=== PATIENT | male | born 1950 | race Caucasian/White ===

== ENCOUNTER → 2017-12-01 12:58 | Outpatient (CLI) | payer MEDICARE, OTHER, SELFPAY ==
--- NOTE | 2017-12-01 | DI.US.S_ITS ---
PROCEDURE: US ABD AORTA ANEURYSM SCREEN INDICATIONS: SCREENING HYPERCALCIMIA HYPERPARATHYROIDISM TECHNIQUE: Real time scanning was performed of the aorta and iliac arteries, with image documentation. COMPARISON: None. FINDINGS: Aorta: Proximal aortic diameter measures 2.1 cm. Mid-aorta measures 1.8 cm. Distal aortic diameter is 1.4 cm. Iliac arteries: Right common iliac artery measures 0.9 cm. Left common iliac artery measures 1.0 cm. IMPRESSION: No abdominal aortic or proximal common iliac artery aneurysm. Dictated by: Jayden Win [facility] Interpreted: Brooke Matthews MD on 12/01/2017 at 14:24 Approved by: Brooke Matthews MD, PhD on 12/01/2017 at 14:37
--- NOTE | 2017-12-01 | DI.RAD.S_ITS ---
PROCEDURE: XR HIP W PEL IF DONE BILAT 2V INDICATIONS: SCREENING HYPERCALCIMIA HYPERPARATHYROIDISM TECHNIQUE: AP pelvis with lateral view(s) of the bilateral hip(s). COMPARISON: None. FINDINGS: Bones: No fractures or dislocations. Pelvic ring appears intact. No suspicious bony lesions. Mild to moderate bilateral hip joint osteoarthritis is seen with joint space narrowing and subchondral sclerosis. No evidence of avascular necrosis. Soft tissues: The visualized bowel gas pattern is normal. No suspicious soft tissue calcifications. IMPRESSION: No suspicious bony lesion is seen. Mild to moderate bilateral hip joint osteoarthritis. Dictated by: Armond Unger M.D. on 12/01/2017 at 15:44 Approved by: Armond Unger M.D. on 12/01/2017 at 15:45
== END ==
PROVIDERS: Family Provider Family Medicine; PCP Family Medicine; Visit Provider Family Medicine
DX: Z13.6 Encounter for screening for cardiovascular disorders (principal); M16.0 Bilateral primary osteoarthritis of hip; E83.52 Hypercalcemia; M25.551 Pain in right hip; M25.552 Pain in left hip
CPT/HCPCS: 73521; 76706; 77080

== ENCOUNTER → 2017-12-23 07:04 | Outpatient (CLI) | payer MEDICARE, OTHER, SELFPAY | PROVIDERS: PCP Family Medicine; Visit Provider Urology | DX: R97.20 Elevated prostate specific antigen [PSA] (principal) | CPT/HCPCS: 36415; 84153 ==

== ENCOUNTER 2018-05-26 06:17 | Day surgery (SDC) | payer MEDICARE, OTHER, SELFPAY ==
[2018-05-26 07:16] VITALS: BP 139/85; PULSE 84; RESP 16; TEMP 36.3; O2SAT 96; BMI 28.1
[2018-05-26] MEDS: fentaNYL 250 MCG/5 ML INJ IV (08:44)
[2018-05-26] MEDS: MIDAZOLAM 5 MG/5 ML VIAL IV (08:46)
[2018-05-26 08:58] VITALS: BP 138/101; PULSE 82; RESP 16; TEMP 36.3; O2SAT 94
--- NOTE | 2018-05-26 09:01 | PM.HP.1 ---
History of Present Illness Date Patient Seen: 05/26/18 Time Patient Seen: 09:01 Chief complaint: [id number] Narrative: Very pleasant 67-year-old gentleman here for screening colonoscopy. He reports his last colonoscopy was 5-6 years ago and he did have some small polyps at that time. Additionally he has a sister who had rectal cancer. He denies any new problems or symptoms related to the function of his GI tract. He reports he needs colonoscopy as part of his health maintenance program. Patient History Social History household members: spouse Family & Social History Social History: household members spouse Meds Home Medications Medication Instructions Recorded Confirmed Type multivitamin 1 tab PO DAILY 05/26/18 05/26/18 History omega 2-kik-bqd-fish oil [Fish Oil] 05/26/18 History Allergies Allergy/AdvReac Type Severity Reaction Status Date / Time No Known Drug Allergies Allergy Verified 05/26/18 07:36 Review of Systems Review of Systems All systems reviewed & are unremarkable except as noted in HPI and below Exam Vital Signs (past 8 hours): - 05/26/18 07:16 Temperature 97.3 F L Pulse Rate 84 Respiratory Rate 16 Blood Pressure 139/85 Pulse Oximetry 96 Oxygen Delivery Method Room Air Narrative Exam Narrative: Wonderful gentleman in no distress HEENT: Normocephalic and atraumatic, pupils equal round reactive to light accommodation with anicteric sclera Lungs: Clear bilaterally Heart: Regular rate and rhythm Abdomen: Soft, nontender, active bowel sounds Extremities: Warm well perfused Assessment & Plan Assessment & Plan narrative: One full 67-year-old gentleman with family history of colon cancer and personal history of colon polyps. We discussed risks and benefits of the procedure the patient expressed a desire to have the procedure.
[2018-05-26 09:03] VITALS: BP 123/86; PULSE 83; RESP 12; O2SAT 93
--- NOTE | 2018-05-26 09:03 | PM.OP.1 ---
Operative Date/Time/Diagnoses Date of procedure: 05/26/18 Time of procedure: 09:03 Pre-op diagnosis: Screening Post-op diagnosis: same Procedure & Clinicians Procedure: Colonoscopy to the cecum Same procedure as scheduled: Yes Indications: Last colonoscopy 6 years ago Surgeon: Marlee Anderson Click Yes if Unassisted: Yes Anesthesia Type: Sedation (Versed 5 mg; fentanyl 200 mcg) Operative Notes Findings: 1. Excellent prep 2. No polyps or mass lesions 3. No AV malformations 4. Diverticulosis limited to the sigmoid region with just a few large pockets scattered 5. Grade 1 internal hemorrhoids 6. Normal colonoscopy for age Closure Type: not applicable Specimen(s): none sent Procedure in detail: After obtaining informed consent, the patient was brought to the GI suite and placed in the left lateral decubitus position on the examination table. After placement of appropriate monitors, the patient was given incremental doses of Versed and Fentanyl until an appropriate level of sedation was achieved. A time out was held per SCOAP protocol. A digital rectal examination was performed and did not reveal any masses or obstructing lesions. The colonoscope was gently passed into the patient's anus and the entire colon navigated to the level of the cecum with minimal difficulty. Once in the cecum, the scope was withdrawn being sure to go before and beyond all mucosal folds and prominences and get an excellent examination. The findings are noted above. At the level of the rectal vault, the scope was retroflexed and the internal anal canal was examined. The scope was straightened and air aspirated from the colon. The instrument was removed from the patient's body and the procedure was concluded. The patient was allowed to awaken from sedation without difficulty and taken to the post-anesthesia care unit in good condition. Total sedation time 18 min Total withdrawal time was 8 min 31 sec Complications: none Condition: stable Disposition: PACU Plan for aftercare: 1. Discharge to home 2. Plan for next colonoscopy in 5 years or as clinically indicated
[2018-05-26 09:08] VITALS: BP 111/77; PULSE 81; RESP 16; O2SAT 93
[2018-05-26 09:14] VITALS: BP 118/82; PULSE 83; RESP 16; TEMP 36.6; O2SAT 93
[2018-05-26 09:44] VITALS: BP 115/71; PULSE 80; RESP 15; TEMP 36.3; O2SAT 95
== END 2018-05-26 09:59 | disposition home or self-care (01) ==
PROVIDERS: Family Provider Family Medicine; PCP Family Medicine; Visit Provider Surgery
PROC: 0DJD8ZZ Inspection of Lower Intestinal Tract, Via Natural or Artificial Opening Endoscopic (ICD-10-PCS; CPT 45378; principal; 2018-05-26 07:45)
DX: Z86.010 Personal history of colon polyps (principal); Z80.0 Family history of malignant neoplasm of digestive organs; K57.30 Diverticulosis of large intestine without perforation or abscess without bleeding; K64.0 First degree hemorrhoids
CPT/HCPCS: G0105; 99152; J2250; J3010

== ENCOUNTER → 2018-12-15 15:46 | Outpatient (CLI) | payer MEDICARE, OTHER, SELFPAY ==
--- NOTE | 2018-12-15 | DI.RAD.S_ITS ---
PROCEDURE: XR SHOULDER RT MIN 2V INDICATIONS: RIGHT SHOULDER PAIN TECHNIQUE: 3 views of the shoulder were acquired. COMPARISON: None. FINDINGS: Bones: No acute fracture or dislocation. Mild degenerative change of the right glenohumeral joint. Moderate degenerative change of the right acromioclavicular joint, with the right acromioclavicular joint space measuring at the upper limits of normal in width. Periarticular osteophyte formation is noted. There is mild subchondral cyst formation of the greater tubercle of the right proximal humerus, which can be seen as a sequela of degenerative change and rotator cuff injury. Soft tissues: No suspicious soft tissue calcifications. IMPRESSION: Mild to moderate degenerative changes of the right shoulder as described above. Dictated by: Paras Duke M.D. on 12/15/2018 at 16:38 Approved by: Paras Duke M.D. on 12/15/2018 at 16:40
== END ==
PROVIDERS: PCP Family Medicine; Visit Provider Family Medicine
DX: M25.511 Pain in right shoulder (principal); M19.011 Primary osteoarthritis, right shoulder
CPT/HCPCS: 73030

== ENCOUNTER → 2019-01-09 12:33 | Outpatient (CLI) | payer MEDICARE, OTHER, SELFPAY ==
--- NOTE | 2019-01-09 | DI.MRI.S_ITS ---
PROCEDURE: MR SHOULDER RT WO CON INDICATIONS: Other synovitis and tenosynovitis TECHNIQUE: Noncontrast oblique coronal T2 fast spin echo with fat saturation, oblique sagittal T1 spin echo and T2 fast spin echo with fat saturation, axial T1 spin echo and T2 fast spin echo with fat saturation through the shoulder. COMPARISON: [facility], CR, XR SHOULDER RT MIN 2V, 12/15/2018, 16:00. FINDINGS: Image quality: Diagnostic. Rotator cuff: There is a moderate-sized full thickness tear present involving the mid aspect of the supraspinatus tendon that measures 1.5 cm in transverse dimension with retraction of the torn tendon fragments by approximately 1.5 cm. A small portion of the tendon remains attached to the greater tuberosity. Approximately 1 cm of tendon remains attached to the bone. The anterior and posterior distal fibers of the supraspinatus tendon appear to be intact. There is prominent posterior distal supraspinatus tendinopathy. There is also mild to moderate infraspinatus tendinopathy with areas of low-grade intrasubstance partial thickness tearing extending along the myotendinous junction. There is moderate subscapularis tendinopathy with low-grade partial-thickness tearing. The teres minor tendon is intact. There is no significant atrophy of the rotator cuff muscles. Bones and bursae: No acute fracture, dislocation, or suspicious osseous lesion is appreciated involving the osseous structures of the right shoulder. There is a moderate size glenohumeral joint effusion that communicates with the subacromial subdeltoid bursa. Mild degenerative changes of the glenohumeral joint are present. There are moderate degenerative changes of the acromioclavicular joint. Capsule and soft tissues: Evaluation of the labrum and the glenohumeral ligaments is difficult without intra-articular contrast. However, there is a [id number] size postero-superior labral tear extending from the 11 o'clock position (anterosuperior) through the 12 o'clock position into approximately the 3 to 4 o'clock position of the posterior labrum. No large para-labral cysts are identified. Extensive irregularity of the long head of biceps tendon is present with high-grade partial-thickness tearing at least present. Complete tear is suspected. No acute injuries are suspected involving the glenohumeral ligaments. IMPRESSION: 1. Moderate-sized full thickness distal supraspinatus tendon tear. 2. Low-grade partial-thickness tearing and tendinopathy of the infraspinatus and subscapularis tendons, as described. 3. Small to moderate size posterosuperior labral tear probably involves the biceps anchor. 4. Probable full-thickness tear of the long head of the biceps tendon. 5. Mild to moderate degenerative changes of the right shoulder joints, as described. 6. Glenohumeral joint effusion. Dictated by: Johnny Asif M.D. on 01/09/2019 at 16:36 Approved by: Johnny Asif M.D. on 01/09/2019 at 16:47
== END ==
PROVIDERS: PCP Family Medicine; Visit Provider Family Medicine
DX: M65.811 Other synovitis and tenosynovitis, right shoulder (principal); M19.011 Primary osteoarthritis, right shoulder; M75.121 Complete rotator cuff tear or rupture of right shoulder, not specified as traumatic; S43.431A Superior glenoid labrum lesion of right shoulder, initial encounter; M25.411 Effusion, right shoulder
CPT/HCPCS: 73221

== ENCOUNTER → 2019-04-23 09:53 | Outpatient (CLI) | payer MEDICARE, OTHER, SELFPAY | PROVIDERS: PCP Family Medicine; Visit Provider Physician Assistant | DX: J02.0 Streptococcal pharyngitis (principal) | CPT/HCPCS: 87070; 87147 ==

== ENCOUNTER → 2019-11-08 10:35 | Outpatient (CLI) | payer MEDICARE, OTHER, SELFPAY ==
[2019-11-08 11:57] LABS: Add Manual Diff / Slide Review NO; Basophils Absolute Auto 100 /uL (0-100); Basophils Percent Auto 0.9 % (0-2); Eosinophils Absolute Auto 200 /uL (0-450); Eosinophils Percent Auto 2.7 % (2-4); Hematocrit 43.2 % (41-53); Hemoglobin 14.5 g/dL (13.5-17.5); Lymphocytes Absolute Auto 1600 /uL (1100-4500); Lymphocytes Percent Auto 27.9 % (25-40); Mean Corpuscular HGB Conc 33.5 % (30-36); Mean Corpuscular Hemoglobin 30.2 PG (26-34); Mean Corpuscular Volume 90.1 fL (80-100); Monocytes Absolute Auto 500 /uL (0-900); Monocytes Percent Auto 9.5 % (3-14); Neutrophils Absolute Auto 3400 /uL (1500-7000); Platelet Count 302 X10^3/uL (150-400); Red Cell Distribution Width 14.6 % (11.6-14.8); White Blood Cell Count 5.8 X10^3/uL (4.5-11.0)
[2019-11-08 12:26] LABS: Alanine Aminotransferase 23 IU/L (<50); Albumin 4.2 g/dL (3.5-5.0); Albumin Globulin Ratio 1.6 (1.0-2.8); Alkaline Phosphatase 108 U/L (38-126); Aspartate Aminotransferase 31 IU/L (17-59); BUN Creatinine Ratio 18.1 (6-22); Bilirubin Total 0.9 mg/dL (0.2-1.3); Blood Urea Nitrogen 15 mg/dL (9-20); Calcium 10.8 mg/dL (8.4-10.2); Carbon Dioxide 27 mmol/L (22-32); Chloride 105 mmol/L (98-107); Cholesterol 174 mg/dL (140-199); Estimated Glomerular Filt Rate > 60.0 mL/min (>60); Globulin 2.6 g/dL (1.7-4.1); Glucose 89 mg/dL (80-110); HDL Cholesterol 51 mg/dL (40-60); HEMOLYSIS < 15 (0-50); LDL Cholesterol Calculated 112 mg/dL (<100); Sodium 139 mmol/L (137-145); Total Protein 6.8 g/dL (6.3-8.2); Triglycerides 55 mg/dL (35-150)
[2019-11-08 12:57] LABS: Thyroid Stimulating Hormone 2.29 uIU/mL (0.47-4.68)
== END ==
PROVIDERS: PCP Family Medicine; Referring Provider Family Medicine; Visit Provider Family Medicine
DX: E78.5 Hyperlipidemia, unspecified (principal); E78.2 Mixed hyperlipidemia
CPT/HCPCS: 36415; 80053; 80061; 84443; 85025

== ENCOUNTER → 2019-11-23 13:10 | Outpatient (CLI) | payer MEDICARE, OTHER, SELFPAY ==
--- NOTE | 2019-11-23 13:20 | DI.RAD.S_ITS ---
PROCEDURE: XR HIP W PEL IF DONE LT MIN 4V INDICATIONS: BI HIP PAIN TECHNIQUE: AP pelvis with lateral view(s) of the left and right hip(s). COMPARISON: None. FINDINGS: Bones: No fractures or dislocations. Pelvic ring appears intact. No suspicious bony lesions. Moderate axial joint narrowing with periarticular osteophyte formation of the hip joints bilaterally. Soft tissues: The visualized bowel gas pattern is normal. No suspicious soft tissue calcifications. IMPRESSION: Moderate hip joint degeneration bilaterally. Dictated by: Jayden Win [facility] Interpreted: Brooke Matthews MD on 11/23/2019 at 13:56 Approved by: Brooke Matthews MD, PhD on 11/23/2019 at 14:36
== END ==
PROVIDERS: PCP Family Medicine; Referring Provider Family Medicine; Visit Provider Family Medicine
DX: M25.551 Pain in right hip (principal); M25.552 Pain in left hip; M16.0 Bilateral primary osteoarthritis of hip
CPT/HCPCS: 73522

== ENCOUNTER → 2020-03-15 17:11 | Outpatient (CLI) | payer MEDICARE, OTHER, SELFPAY ==
--- NOTE | 2020-03-15 | DI.RAD.S_ITS ---
PROCEDURE: XR ANKLE LT MIN 3V INDICATIONS: LEFT ANKLE PAIN TECHNIQUE: 3 views of the ankle were acquired. COMPARISON: None. FINDINGS: Bones: There is a remote, unhealed distal lateral malleolar avulsion fracture. The talus is irregular posteriorly, which is suggestive of a remote fracture. There is narrowing of the ankle mortise medially, with increased sclerosis seen along the joint margins at this site. No acute fractures or dislocations. Ankle mortise is normally aligned. No suspicious bony lesions. Soft tissues: No tibiotalar joint effusion. Achilles tendon appears normal. IMPRESSION: Findings of remote ankle trauma. If it would be helpful for clinical management decision making, please consider a dedicated ankle MRI for further evaluation (assuming that there is no contraindication). Dictated by: Remi Flores M.D. on 03/15/2020 at 16:57 Approved by: Remi Flores M.D. on 03/15/2020 at 16:58
== END ==
PROVIDERS: PCP Family Medicine; Referring Provider Family Medicine; Visit Provider Family Medicine
DX: M25.572 Pain in left ankle and joints of left foot (principal); S82.62XS Displaced fracture of lateral malleolus of left fibula, sequela
CPT/HCPCS: 73610

== ENCOUNTER → 2020-03-29 11:17 | Outpatient (CLI) | payer MEDICARE, OTHER, SELFPAY ==
--- NOTE | 2020-03-29 | DI.MRI.S_ITS ---
PROCEDURE: MR ANKLE LT WO CON INDICATIONS: Pain in left ankle and joints of left foot TECHNIQUE: Noncontrast sagittal T1 spin echo and T2 fast spin echo with fat saturation, axial proton density fast spin echo and T2 fast spin echo with fat saturation, coronal T1 spin echo and T2 fast spin echo with fat saturation through the ankle/hindfoot. COMPARISON: [facility], CR, XR ANKLE LT MIN 3V, 03/15/2020, 17:14. FINDINGS: Image quality: Excellent. Bones and joints: No bone marrow contusions or acute fractures. There is moderate degeneration of the tibiotalar joint with osteophytosis as well as cartilage thinning and fissuring associated with subchondral edema and cystic change. There is an associated small tibiotalar joint effusion. Mild to moderate midfoot degeneration is also demonstrated with foci of subchondral edema including along the talonavicular articulation as well as the talar-cuneiform and tarsometatarsal joints. There is a corticated ossicle inferior to the lateral malleolus redemonstrated consistent with sequelae of a prior avulsion fracture. No hindfoot coalitions. Medial structures: The posterior tibialis, flexor digitorum longus, and flexor hallucis longus tendons are intact. The posterior tibial neurovascular bundle appears normal within the tarsal tunnel, without extrinsic mass effect. The deltoid and spring ligaments appear intact. Lateral structures: The anterior talofibular, calcaneofibular, and posterior talofibular ligaments appear mildly thickened consistent with sequelae of prior sprains. More superiorly, the anterior tibiofibular ligament is not well visualized, with moderate degeneration demonstrated along its expected course. The posterior tibiofibular ligament appears intact. The intermalleolar ligament is attenuated in signal with edema along its expected course consistent with sequelae of a high-grade sprain. The tibiofibular syndesmosis demonstrates no abnormal widening. The peroneus longus and brevis tendons demonstrate normal location and morphology with a small amount of tenosynovial fluid along their course inferior to the lateral malleolus. There is mild adjacent cyst formation laterally suggestive of ganglion cysts. Adjacent bony peroneal tubercle and retrotrochlear prominence are normal in size. The sinus tarsi demonstrates preserved fatty signal. The calcaneonavicular and calcaneocuboid components of the bifurcate ligament appear intact. The dorsal calcaneocuboid ligament appears intact. Anterior structures: The tibialis anterior, extensor hallucis longus, and extensor digitorum longus tendons appear intact. The dorsal talonavicular ligament appears intact. Posterior and plantar structures: Achilles tendon is intact. Medial and lateral bands of the plantar fascia are of normal thickness. No abductor digiti quinti muscle atrophy to suggest Sprague neuropathy. IMPRESSION: 1. Moderate degeneration along the tibiotalar joint with a small joint effusion. Associated foci of subchondral edema demonstrated along the talar dome without a discrete unstable or displaced osteochondral lesion. 2. Mild to moderate midfoot degeneration. 3. Sequelae of prior sprains of the anterior tibial fibular ligament, calcaneofibular, and anterior talofibular ligaments laterally. Dictated by: Alejandro Santiago M.D. on 03/29/2020 at 15:35 Approved by: Alejandro Santiago M.D. on 03/29/2020 at 15:47
== END ==
PROVIDERS: PCP Family Medicine; Referring Provider Family Medicine; Visit Provider Family Medicine
DX: M25.572 Pain in left ankle and joints of left foot (principal); M19.072 Primary osteoarthritis, left ankle and foot; M25.475 Effusion, left foot
CPT/HCPCS: 73721

== ENCOUNTER → 2020-06-17 12:09 | Outpatient (CLI) | payer MEDICARE, OTHER, SELFPAY ==
--- NOTE | 2020-06-17 12:11 | DI.NM.S_ITS ---
PROCEDURE: NM PARATHYROID RADIOPHARMACEUTICAL: 24.9 mCi Tc-99m sestamibi IV. INDICATIONS: Hypercalcemia TECHNIQUE: After intravenous administration of Tc-99m sestamibi, anterior planar images of the neck and mediastinum were obtained at approximately 10 minutes and 2-3 hours. SPECT images were acquired after the 10 minute planar images. COMPARISON: None. FINDINGS: On the early images, the thyroid gland is bilobed and has normal size and morphology. There is focal increased activity in the mid to lower right thyroid bed. The delayed images show subtle preferential tracer retention activity in the thyroid bed suggesting parathyroid adenoma. The SPECT images demonstrate focal increased activity posterior to the right inferior thyroid bed. IMPRESSION: Suspect a parathyroid adenoma in the posterior inferior right thyroid bed. Dictated by: Pablo Hare M.D. on 06/17/2020 at 16:18 Approved by: Pablo Hare M.D. on 06/17/2020 at 16:29
== END ==
PROVIDERS: PCP Family Medicine; Referring Provider Family Medicine; Visit Provider Family Medicine
DX: E83.52 Hypercalcemia (principal)
CPT/HCPCS: 78070; A9500

== ENCOUNTER → 2020-07-01 10:07 | Outpatient (CLI) | payer MEDICARE, OTHER, SELFPAY ==
[2020-07-01 12:09] LABS: COVID19 -Nasal RAPID Negative (Negative)
== END ==
PROVIDERS: PCP Family Medicine; Visit Provider Physician Assistant
DX: Z20.822 Contact with and (suspected) exposure to COVID-19 (principal)
CPT/HCPCS: 87635; C9803

== ENCOUNTER → 2020-07-02 10:27 | Outpatient (CLI) | payer MEDICARE, OTHER, SELFPAY ==
--- NOTE | 2020-07-03 05:05 | DI.NM.S_ITS ---
DATE OF SERVICE: 07/02/2020 INDICATIONS: Left bundle branch block, chest pain. RADIOPHARMACEUTICAL: 26.7 millicurie technetium-99m Myoview IV was injected at stress and 12.0 millicurie technetium-99m Myoview IV was injected at rest. It was one day study. CARDIAC STRESS: The patient underwent IV Lexiscan perfusion study under the supervision of an attending staff. The patient received IV Lexiscan as per standard protocol. Baseline rhythm was sinus with left bundle branch block. During stress, patient remained in left bundle branch block. There was no new significant arrhythmias on ischemic changes. The patient felt dyspnea, but no chest pain. Raw data, there is increased subdiaphragmatic activity. There is a hot spot near the inferior border. The liver is at high position. Gated study status LV ejection fraction 51% with some septal hypokinesis. Resting end- diastolic 140 mL. TID ratio 1.08, which is within normal limits. Lung/heart ratio 0.37, which is within normal limits. MYOCARDIAL PERFUSION SCAN: Stress supine, resting supine and stress prone images were compared to each other. Stress supine and resting supine images revealed moderate-size moderate to severely decreased perfusion of inferior wall, septum as well as distal anterior wall. Stress prone images revealed significant improvement in the inferior wall and septal perfusion defect. The patient remained to have persistent perfusion defect of distal anterior wall, basal inferior wall as well as basal inferior septum. No reversible ischemia. CONCLUSION: 1. No obvious reversible ischemia. 2. There is a predominantly fixed basal inferior wall, basal inferior septum as well as distal anterior wall defect. Part of the inferior wall and septum defect got improved during prone images. There is a hot spot near the inferior border during raw images. The patient has a left bundle branch block. There is a component of tissue attenuation artifact as well as perfusion defect due to left bundle branch block and diaphragmatic tissue attenuation artifact as well as due to hard spot near the inferior border. However, one cannot rule out small size myocardial infarction of the distal anterior wall, basal inferior wall and inferior septum. The patient had a perfusion study in December,. At that time also patient had a perfusion defect in the inferoseptal area, but not in distal anterior wall and inferior wall area. Clinical correlation is recommended. Wander Mckenzie - LOIS/chula/marina doc#: [id number]/job#: [id number] dd: 07/02/2020 17:08:00 dt: 07/03/2020 04:42:00 DICTATING MD/COPIES TO: Anthony Lozoya MD COPIES MNE: REY;
== END ==
PROVIDERS: PCP Family Medicine; Referring Provider Family Medicine; Visit Provider Family Medicine
DX: R07.9 Chest pain, unspecified (principal); I44.7 Left bundle-branch block, unspecified
CPT/HCPCS: 78452; 93017; A9502; J2785

== ENCOUNTER → 2020-09-18 13:45 | Outpatient (CLI) | payer MEDICARE, OTHER, SELFPAY ==
--- NOTE | 2020-09-18 13:47 | DI.ECHO.S_ITS ---
[place] [facility]---------+ [facility] +---------+ : : [address] : : : : [id number] : : : : Phone: [phone]+ Echocardiogram Report + + :Name: SANDHYA BRUNO Study Date: 09/18/2020 Height: 68 in : :[facility] ReadingLocation: Weight: 190 lb : : Gender: Male BSA: 2.0 m2 : :: 1950 Age: 69 yrs BP: 159/91 mmHg: :Reason For Study: LEFT BUNDLE BRANCH BLOCK : :Ordering Physician: ASTRID, : :TANIA Performed By: Batool Gómez : :Referring: TANIA GONZALEZ : + + Interpretation Summary 1) Normal left ventricular thickness, size, and systolic function (EF 55-60%). 2) Septal motion is consistent with conduction abnormality. 3) Normal right ventricular size and function. 4) No significant valvular abnormalities. 5) No prior Echo available for comparison. Procedure: A two-dimensional transthoracic echocardiogram with color flow and Doppler was performed. The study quality was technically adequate. There is no prior echocardiogram noted for this patient. The patient was in sinus rhythm with heart rates between 71-84 bpm during the exam. Left Ventricle: The left ventricle is normal in size. There is mild asymmetric left ventricular hypertrophy. Proximal septal thickening is noted. There is no echo evidence for significant left ventricular outflow tract obstruction. The ejection fraction is estimated to be 55-60%. Septal motion is consistent with conduction abnormality. Diastolic parameters suggest probable normal left ventricular diastolic function and normal filling pressures. Right Ventricle: The right ventricle is normal in size and function. Atria: Both atria are normal in size. There is no Doppler evidence for an interatrial shunt. Mitral Valve: The mitral valve is normal in structure but abnormal in function. There is trace mitral regurgitation. Aortic Valve: The aortic valve is trileaflet. The aortic valve opens well. There is no aortic valve stenosis. No aortic regurgitation is present. Tricuspid Valve: The tricuspid valve is normal in structure and function. There is trace tricuspid regurgitation. Pulmonary artery pressures cannot be estimated because of the lack of a measurable TR jet velocity but the IVC suggests a CVP of around 3 mmHg. Pulmonic Valve: The pulmonic valve is not well seen, but is grossly normal. There is no pulmonic valvular regurgitation. Great Vessels: The aortic root is normal size. The ascending aorta is mildly enlarged. The IVC is of normal diameter and collapses greater than 50% with a sniff. This suggests a low right atrial pressure of 3 mm Hg. Pericardium/ Pleura There is no pericardial effusion. There is no pleural effusion. MMode/2D Measurements & Calculations LVIDd: 4.3 cm LVOT diam: 2.1 cm LVIDs: 2.8 cm Ao root diam: 3.2 cm FS: 35.1 % asc Aorta Diam: 3.9 cm IVSd: 1.3 cm Ao Arch Diam (Prox Trans): 2.5 cm LVPWd: 0.99 cm LV mauro. diameter/BSA (cm/m^2): 2.2 LV sys. diameter/BSA (cm/m^2): 1.4 LA A2 area: 20.4 cm2 RA long axis: 4.4 cm LA A4 area: 15.2 cm2 RA area: 14.9 cm2 LA length (vol): 4.5 cm RA vol: 43.5 ml LA vol: 58.5 ml RA : 21.7 ml/m2 LA vol index: 29.2 ml/m2 IVC diam: 1.7 cm RVD1 (basal): 4.0 cm TAPSE: 2.0 cm Doppler Measurements & Calculations Ao V2 max: 111.6 cm/sec LVOT Max Yayo: 104.0 cm/sec Ao V2 mean: 74.5 cm/sec LV V1 max P.3 mmHg Ao max P.0 mmHg LV V1 VTI: 18.8 cm Ao mean P.6 mmHg SHON(I,D): 3.0 cm2 Ao V2 VTI: 21.1 cm SHON(V,D): 3.2 cm2 sev ratio: 0.89 SHON indexed to BSA (cm^2/m^2): 1.5 MV E max yayo: 56.2 cm/sec PA V2 max: 135.1 cm/sec MV A max yayo: 57.3 cm/sec PA V2 mean: 89.4 cm/sec MV E/A: 0.98 PA mean P.7 mmHg Med Peak E' Yayo: 5.2 cm/sec PA pr(Accel): 40.1 mmHg E/E' med: 10.9 Lat Peak E' Yayo: 7.9 cm/sec E/E' lat: 7.1 E/e' average: 9.0 MV dec time: 0.23 sec SVLVOT): 63.6 ml Reading Physician:04:52 PM
== END ==
PROVIDERS: PCP Family Medicine; Referring Provider Internal Medicine Cardiovascular Disease; Visit Provider Internal Medicine Cardiovascular Disease
DX: I44.7 Left bundle-branch block, unspecified (principal); I77.89 Other specified disorders of arteries and arterioles
CPT/HCPCS: 93306

== ENCOUNTER 2020-12-02 16:47 | Emergency (ER) | payer MEDICARE, OTHER, SELFPAY ==
[2020-12-02] VITALS (16 sets, daily range): BP systolic 115–143; BP diastolic 56–72; PULSE 70–113; RESP 14–25; TEMP 37.2–38.1; O2SAT 94–95
--- NOTE | 2020-12-02 17:11 | DI.RAD.S_ITS ---
PROCEDURE: XR CHEST 1V INDICATIONS: suspected sepsis TECHNIQUE: One view of the chest was acquired. COMPARISON: [facility], CHEST 1 VIEW, 12/07/2014, 22:19. [facility], CHEST 2 VIEW, 12/29/2010, 14:47. FINDINGS: Surgical changes and devices: None. Lungs and pleura: On this semiupright portable chest examination, no large pneumothorax or large pleural effusions are seen. No focal infiltrates are seen. Elevation of the right hemidiaphragm can be seen. Mediastinum: Mediastinal contours appear normal. Heart size is normal. Bones and chest wall: No suspicious bony lesions. Overlying soft tissues appear unremarkable. IMPRESSION: No focal infiltrates are seen. Elevation of the right hemidiaphragm can be seen. Dictated by: Remi Flores M.D. on 12/02/2020 at 16:54 Approved by: Remi Flores M.D. on 12/02/2020 at 16:55
[2020-12-02] MEDS: SODIUM CHLORIDE 0.9% 1,000 ML 1000 ML IV (17:51)
[2020-12-02 17:57] LABS: Add Manual Diff / Slide Review NO; Basophils Absolute Auto 0 /uL (0-100); Basophils Percent Auto 0.4 % (0-2); Eosinophils Absolute Auto 0 /uL (0-450); Eosinophils Percent Auto 0.2 % (2-4); Hematocrit 38.5 % (41-53); Hemoglobin 13.3 g/dL (13.5-17.5); Lymphocytes Absolute Auto 800 /uL (1100-4500); Lymphocytes Percent Auto 9.2 % (25-40); Mean Corpuscular HGB Conc 34.6 % (30-36); Mean Corpuscular Hemoglobin 30.9 PG (26-34); Mean Corpuscular Volume 89.2 fL (80-100); Monocytes Absolute Auto 800 /uL (0-900); Monocytes Percent Auto 9.9 % (3-14); Neutrophils Absolute Auto 6700 /uL (1500-7000); Neutrophils Percent Auto 80.3 % (50-75); Platelet Count 180 X10^3/uL (150-400); Red Blood Cell Count 4.31 X10^6/uL (4.5-5.9); Red Cell Distribution Width 14.2 % (11.6-14.8); White Blood Cell Count 8.3 X10^3/uL (4.5-11.0)
[2020-12-02 17:58] LABS: Bacteria Urine None Seen; WBC Urine None Seen (0-5/HPF)
[2020-12-02 18:07] LABS: Appearance Urine UA CLEAR; Bilirubin Urine UA NEGATIVE (NEGATIVE); Color Urine UA YELLOW; Glucose Urine UA NEGATIVE (Negative); Ketones Urine UA NEGATIVE (NEGATIVE); Leukocyte Esterase Urine UA NEGATIVE (NEGATIVE); Nitrite Urine UA NEGATIVE (Negative); Occult Blood Urine UA TRACE-LYSED (Negative); Protein Urine UA 1+ (Negative); Urobilinogen Urine UA 0.2 E.U./dL (0.2); pH Urine UA 5.5 (4.5-8.0)
[2020-12-02 18:08] LABS: Amorphous Sediment Urine 2+; Culture Indicated Urine Cult Not Indicated; RBC Urine 1-5/HPF (0-5/HPF)
[2020-12-02 18:08] LABS: Alanine Aminotransferase 385 IU/L (<50); Albumin 3.4 g/dL (3.5-5.0); Albumin Globulin Ratio 1.2 (1.0-2.8); Alkaline Phosphatase 352 U/L (38-126); Aspartate Aminotransferase 335 IU/L (17-59); BUN Creatinine Ratio 22.9 (6-22); Bilirubin Total 0.9 mg/dL (0.2-1.3); Blood Urea Nitrogen 19 mg/dL (9-20); Calcium 8.9 mg/dL (8.4-10.2); Carbon Dioxide 23 mmol/L (22-32); Chloride 106 mmol/L (98-107); Estimated Glomerular Filt Rate > 60.0 mL/min (>60); Globulin 2.8 g/dL (1.7-4.1); Glucose 145 mg/dL (80-110); HEMOLYSIS < 15 (0-50); Lipase 58 U/L (23-300); Potassium 3.3 mmol/L (3.4-5.1); Sodium 136 mmol/L (137-145); Total Protein 6.2 g/dL (6.3-8.2)
--- NOTE | 2020-12-02 18:11 | ED.FEVER ---
HPI - Fever General Chief Complaint: Fever Stated Complaint: FEVER COUGH VOMITING POSSIBLE COVID Time Seen by Provider: 12/02/20 18:02 Source: patient Mode of arrival: Ambulatory History of Present Illness HPI Narrative: Patient here with . Complains 6 days of fever body aches chills generalized weakness and fatigue. Starting to feel short of breath as well on exertion. Had few episodes of nausea and vomiting. Last ibuprofen at 4:00 p.m.. Denies any abdominal pain but feels abdominal bloating and fullness. Denies any sick contacts. Patient states had to negative rapid COVID test in the past week. Denies any heart or lung history. Related Data Home Medications Medication Instructions Recorded Confirmed multivitamin 1 tab PO DAILY 05/26/18 04/02/20 omega 3-wkh-jlx-fish oil 1,000 mg 05/26/18 04/02/20 (120 mg-180 mg) capsule (Fish Oil) Previous Rx's Medication Instructions Recorded meloxicam 15 mg tablet 15 mg PO DAILY #30 tab 04/02/20 doxycycline monohydrate 100 mg 100 mg PO BID #20 cap 12/02/20 capsule Allergies Allergy/AdvReac Type Severity Reaction Status Date / Time No Known Drug Allergies Allergy Verified 12/02/20 17:23 Review of Systems Review of Systems Narrative: GENERAL: Complaint chills, fatigue, malaise, fever, sweats. 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 EYES: Pupils equal round No scleral icterus. No injection no discharge ENT: Mucous membranes moist. NECK: Trachea midline. CARDIOVASCULAR: Regular rate and rhythm without murmurs, tachycardia RESPIRATORY: Clear to auscultation. Breath sounds equal bilaterally. No wheezes, rales, or rhonchi. Speaking full sentences GASTROINTESTINAL: Abdomen soft, non-tender, bowel sounds present, no peritoneal signs EXTREMITIES: No gross deformities. BACK: No flank tenderness. NEURO: AOx4. SKIN: Warm and dry PSYCH: Not anxious, is cooperative Initial Vital Signs Initial Vital Signs: Vital Signs Temperature 100.5 F H 12/02/20 17:14 Pulse Rate 113 H 12/02/20 17:14 Respiratory Rate 20 12/02/20 17:14 Blood Pressure 136/63 12/02/20 17:14 Pulse Oximetry 94 12/02/20 17:14 Course Course Course Narrative: I did speak with Infectious Disease as well as primary care for treatment plan. They all agree for outpatient follow-up. Serology test will be sent out for testing. Including histoplasmosis H[place] virus and leptospirosis Orders Ordered: Discontinued Medications Acetaminophen (Acetaminophen 325 Mg Tablet) 975 mg PO NOW ONE Stop: 12/02/20 18:12 Last Admin: 12/02/20 18:20 Dose: 975 mg Documented by: ALANA Doxycycline Hyclate (Doxycycline Hyclate 100 Mg Tablet) 100 mg PO NOW ONE Stop: 12/02/20 23:00 Last Admin: 12/02/20 23:05 Dose: 100 mg Documented by: ALANA Sodium Chloride (Normal Saline 0.9%) 1,000 mls @ 1,000 mls/hr IV BOLUS ONE Stop: 12/02/20 18:10 Last Infusion: 12/02/20 19:40 Dose: 0 mls/hr Documented by: Admin: 12/02/20 17:51 Dose: 1,000 mls/hr Documented by: ALANA Ibuprofen (Ibuprofen 400 Mg Tablet) 800 mg PO NOW ONE Stop: 12/02/20 23:02 Last Admin: 12/02/20 23:05 Dose: 800 mg Documented by: ALANA Reevaluation(s) Reevaluation #1: Reviewed with patient results. They agree for treatment plan follow-up with Dr. Foley. Return precautions reviewed with him. Patient and happy with treatment plan. 94% and walking in hallway room air. No dyspnea. Time: 22:52 Consultations Consultation #1: Spoke with Infectious Disease, Dr. Teixeira as well as Dr. Fisher. Dr. Bhakta is from [facility]. They suggest serology for Hernando virus as well histoplasmosis and leptospirosis. Start doxycycline prophylactically as well as possible pneumonia on the right side of lungs. Time: 21:43 Consultation #2: Spoke with primary care physician Dr. Foley, she will follow-up with patient's serology that will be sent out tomorrow. Will see patient this Wednesday for recheck. Time: 22:39 Vital Signs Vital signs: Vital Signs - 8 hr 12/02/20 18:30 12/02/20 18:31 12/02/20 18:45 Temperature Pulse Rate 90 91 H 92 H Respiratory Rate 24 22 22 Blood Pressure 128/59 L 115/57 L Pulse Oximetry 94 94 95 12/02/20 19:00 12/02/20 19:30 12/02/20 20:00 Temperature 98.9 F Pulse Rate 81 80 75 Respiratory Rate 24 16 21 Blood Pressure 118/58 L 143/72 H Pulse Oximetry 95 94 94 12/02/20 20:30 12/02/20 21:00 12/02/20 21:30 Temperature Pulse Rate 74 73 70 Respiratory Rate 17 17 15 Blood Pressure 127/62 123/56 L 137/63 Pulse Oximetry 95 95 94 12/02/20 22:00 12/02/20 22:30 Temperature Pulse Rate 73 79 Respiratory Rate 24 14 Blood Pressure Pulse Oximetry 95 95 MDM - Fever Differential Diagnosis Differential diagnosis: Likely other (Pneumonia/cholecystitis/appendicitis/viral infection) Medical Records Medical records narrative: CARDIAC STRESS: The patient underwent IV Lexiscan perfusion study under the supervision of an attending staff. The patient received IV Lexiscan as per standard protocol. Baseline rhythm was sinus with left bundle branch block. During stress, patient remained in left bundle branch block. There was no new significant arrhythmias on ischemic changes. The patient felt dyspnea, but no chest pain. Raw data, there is increased subdiaphragmatic activity. There is a hot spot near the inferior border. The liver is at high position. Gated study status LV ejection fraction 51% with some septal hypokinesis. Resting end- diastolic 140 mL. TID ratio 1.08, which is within normal limits. Lung/heart ratio 0.37, which is within normal limits. Lab Data Result diagrams: 12/02/20 17:35 12/02/20 17:35 Labs: Lab Results 12/02/20 12/02/20 12/02/20 Range/Units 17:05 17:05 17:15 WBC (4.5-11.0) X10^3/uL RBC (4.5-5.9) X10^6/uL Hgb (13.5-17.5) g/dL Hct (41-53) % MCV (80-100) fL MCH (26-34) PG MCHC (30-36) % RDW (11.6-14.8) % Plt Count (150-400) X10^3/uL Neut % (Auto) (50-75) % Lymph % (Auto) (25-40) % [place] % (Auto) (3-14) % Eos % (Auto) (2-4) % Baso % (Auto) (0-2) % Neut # (Auto) (2101-4888) /uL Lymph # (Auto) (1925-9254) /uL [place] # (Auto) (0-900) /uL Eos # (Auto) (0-450) /uL Baso # (Auto) (0-100) /uL Sodium (137-145) mmol/L Potassium (3.4-5.1) mmol/L Chloride (98-107) mmol/L Carbon Dioxide (22-32) mmol/L BUN (9-20) mg/dL Creatinine (0.66-1.25) mg/dL Estimated GFR (>60) mL/min BUN/Creatinine Ratio (6-22) Glucose (80-110) mg/dL Lactate (0.7-2.1) mmol/L Calcium (8.4-10.2) mg/dL Total Bilirubin (0.2-1.3) mg/dL AST (17-59) IU/L ALT (<50) IU/L Alkaline Phosphatase (38-126) U/L Total Protein (6.3-8.2) g/dL Albumin (3.5-5.0) g/dL Globulin (1.7-4.1) g/dL Albumin/Globulin Ratio (1.0-2.8) Lipase (23-300) U/L Procalcitonin (<0.5) ng/mL Urine Color Yellow Urine Appearance Clear Urine pH 5.5 (4.5-8.0) Ur Specific [place] 1.020 (1.000-1.035) Urine Protein 1+ H (Negative) Urine Glucose (UA) Negative (Negative) g/dL Urine Ketones Negative (NEGATIVE) Urine Occult Blood Trace-lysed (Negative) Urine Nitrate Negative (Negative) Urine Bilirubin Negative (NEGATIVE) Urine Urobilinogen 0.2 (0.2) E.U./dL Ur Leukocyte Esterase Negative (NEGATIVE) Urine RBC 1-5/hpf (0-5/HPF) Urine WBC None seen (0-5/HPF) Amorphous Sediment 2+ Urine Bacteria None seen (None) Ur Culture Indicated? Cult not indicated Chlamy pneumoniae PCR Not detected (Not Detect) Adenovirus (PCR) Not detected (Not Detect) B. pertussis DNA (PCR) Not detected (Not Detecte) B.parapertussis DNA PCR Not Reportable Coronavirus OC43 (PCR) Not detected (Not Detect) Coronavirus HKU1 (PCR) Not detected (Not Detect) Coronavirus 229E (PCR) Not detected (Not Detect) SARS-CoV-2 (PCR) Not Reportable Negative Coronavirus NL63 (PCR) Not detected (Not Detect) Hepatitis A IgM Ab (Negative) Hep Bs Antigen (Negative) Hep B Core IgM Ab (Negative) Hepatitis C Antibody (0.0-0.9) s/co ratio Hep C Ab Signal/Cutoff (.) Human Metapneumovir PCR Not detected (Not Detect) Influenza Type A (PCR) Not detected (Not Detect) Influenza Type B (PCR) Not detected (Not Detect) M. pneumoniae (PCR) Not detected (Not Detect) Parainfluenza 1 (PCR) Not detected (Not Detect) Parainfluenza 2 (PCR) Not detected (Not Detect) Parainfluenza 3 (PCR) Not detected (Not Detect) Parainfluenza 4 (PCR) Not detected (Not Detect) RSV (PCR) Not detected (Not Detect) Entero/Rhino (PCR) Not detected (Not Detect) 12/02/20 12/02/20 12/02/20 Range/Units 17:35 17:35 17:35 WBC 8.3 (4.5-11.0) X10^3/uL RBC 4.31 L (4.5-5.9) X10^6/uL Hgb 13.3 L (13.5-17.5) g/dL Hct 38.5 L (41-53) % MCV 89.2 (80-100) fL MCH 30.9 (26-34) PG MCHC 34.6 (30-36) % RDW 14.2 (11.6-14.8) % Plt Count 180 (150-400) X10^3/uL Neut % (Auto) 80.3 H (50-75) % Lymph % (Auto) 9.2 L (25-40) % [place] % (Auto) 9.9 (3-14) % Eos % (Auto) 0.2 L (2-4) % Baso % (Auto) 0.4 (0-2) % Neut # (Auto) 6700 (3025-3742) /uL Lymph # (Auto) 800 L (5291-6343) /uL [place] # (Auto) 800 (0-900) /uL Eos # (Auto) 0 (0-450) /uL Baso # (Auto) 0 (0-100) /uL Sodium 136 L (137-145) mmol/L Potassium 3.3 L (3.4-5.1) mmol/L Chloride 106 (98-107) mmol/L Carbon Dioxide 23 (22-32) mmol/L BUN 19 (9-20) mg/dL Creatinine 0.83 (0.66-1.25) mg/dL Estimated GFR > 60.0 (>60) mL/min BUN/Creatinine Ratio 22.9 H (6-22) Glucose 145 H (80-110) mg/dL Lactate 1.0 (0.7-2.1) mmol/L Calcium 8.9 (8.4-10.2) mg/dL Total Bilirubin 0.9 (0.2-1.3) mg/dL AST 335 H (17-59) IU/L ALT 385 H (<50) IU/L Alkaline Phosphatase 352 H (38-126) U/L Total Protein 6.2 L (6.3-8.2) g/dL Albumin 3.4 L (3.5-5.0) g/dL Globulin 2.8 (1.7-4.1) g/dL Albumin/Globulin Ratio 1.2 (1.0-2.8) Lipase 58 (23-300) U/L Procalcitonin 0.40 (<0.5) ng/mL Urine Color Urine Appearance Urine pH (4.5-8.0) Ur Specific [place] (1.000-1.035) Urine Protein (Negative) Urine Glucose (UA) (Negative) g/dL Urine Ketones (NEGATIVE) Urine Occult Blood (Negative) Urine Nitrate (Negative) Urine Bilirubin (NEGATIVE) Urine Urobilinogen (0.2) E.U./dL Ur Leukocyte Esterase (NEGATIVE) Urine RBC (0-5/HPF) Urine WBC (0-5/HPF) Amorphous Sediment Urine Bacteria (None) Ur Culture Indicated? Chlamy pneumoniae PCR (Not Detect) Adenovirus (PCR) (Not Detect) B. pertussis DNA (PCR) (Not Detecte) B.parapertussis DNA PCR Coronavirus OC43 (PCR) (Not Detect) Coronavirus HKU1 (PCR) (Not Detect) Coronavirus 229E (PCR) (Not Detect) SARS-CoV-2 (PCR) Coronavirus NL63 (PCR) (Not Detect) Hepatitis A IgM Ab (Negative) Hep Bs Antigen (Negative) Hep B Core IgM Ab (Negative) Hepatitis C Antibody (0.0-0.9) s/co ratio Hep C Ab Signal/Cutoff (.) Human Metapneumovir PCR (Not Detect) Influenza Type A (PCR) (Not Detect) Influenza Type B (PCR) (Not Detect) M. pneumoniae (PCR) (Not Detect) Parainfluenza 1 (PCR) (Not Detect) Parainfluenza 2 (PCR) (Not Detect) Parainfluenza 3 (PCR) (Not Detect) Parainfluenza 4 (PCR) (Not Detect) RSV (PCR) (Not Detect) Entero/Rhino (PCR) (Not Detect) 12/02/20 Range/Units 20:22 WBC (4.5-11.0) X10^3/uL RBC (4.5-5.9) X10^6/uL Hgb (13.5-17.5) g/dL Hct (41-53) % MCV (80-100) fL MCH (26-34) PG MCHC (30-36) % RDW (11.6-14.8) % Plt Count (150-400) X10^3/uL Neut % (Auto) (50-75) % Lymph % (Auto) (25-40) % [place] % (Auto) (3-14) % Eos % (Auto) (2-4) % Baso % (Auto) (0-2) % Neut # (Auto) (4419-0882) /uL Lymph # (Auto) (0305-9307) /uL [place] # (Auto) (0-900) /uL Eos # (Auto) (0-450) /uL Baso # (Auto) (0-100) /uL Sodium (137-145) mmol/L Potassium (3.4-5.1) mmol/L Chloride (98-107) mmol/L Carbon Dioxide (22-32) mmol/L BUN (9-20) mg/dL Creatinine (0.66-1.25) mg/dL Estimated GFR (>60) mL/min BUN/Creatinine Ratio (6-22) Glucose (80-110) mg/dL Lactate (0.7-2.1) mmol/L Calcium (8.4-10.2) mg/dL Total Bilirubin (0.2-1.3) mg/dL AST (17-59) IU/L ALT (<50) IU/L Alkaline Phosphatase (38-126) U/L Total Protein (6.3-8.2) g/dL Albumin (3.5-5.0) g/dL Globulin (1.7-4.1) g/dL Albumin/Globulin Ratio (1.0-2.8) Lipase (23-300) U/L Procalcitonin (<0.5) ng/mL Urine Color Urine Appearance Urine pH (4.5-8.0) Ur Specific [place] (1.000-1.035) Urine Protein (Negative) Urine Glucose (UA) (Negative) g/dL Urine Ketones (NEGATIVE) Urine Occult Blood (Negative) Urine Nitrate (Negative) Urine Bilirubin (NEGATIVE) Urine Urobilinogen (0.2) E.U./dL Ur Leukocyte Esterase (NEGATIVE) Urine RBC (0-5/HPF) Urine WBC (0-5/HPF) Amorphous Sediment Urine Bacteria (None) Ur Culture Indicated? Chlamy pneumoniae PCR (Not Detect) Adenovirus (PCR) (Not Detect) B. pertussis DNA (PCR) (Not Detecte) B.parapertussis DNA PCR Coronavirus OC43 (PCR) (Not Detect) Coronavirus HKU1 (PCR) (Not Detect) Coronavirus 229E (PCR) (Not Detect) SARS-CoV-2 (PCR) Coronavirus NL63 (PCR) (Not Detect) Hepatitis A IgM Ab Negative (Negative) Hep Bs Antigen Negative (Negative) Hep B Core IgM Ab Negative (Negative) Hepatitis C Antibody <0.1 (0.0-0.9) s/co ratio Hep C Ab Signal/Cutoff Comment (.) Human Metapneumovir PCR (Not Detect) Influenza Type A (PCR) (Not Detect) Influenza Type B (PCR) (Not Detect) M. pneumoniae (PCR) (Not Detect) Parainfluenza 1 (PCR) (Not Detect) Parainfluenza 2 (PCR) (Not Detect) Parainfluenza 3 (PCR) (Not Detect) Parainfluenza 4 (PCR) (Not Detect) RSV (PCR) (Not Detect) Entero/Rhino (PCR) (Not Detect) Imaging Data Chest x-ray: Radiologist's Impression: [address] [id number] ReportSigned Patient: Wander Mckenzie [facility]#: [id number]: 3Acct:[id number]/Sex: 70 / MDate of Service: 12/02/20Loc: EDAccession Number: [id number] Procedure: XR chest 1V Ordering Provider: Elder Avalos D.O. PROCEDURE: XR CHEST 1V INDICATIONS: suspected sepsis TECHNIQUE: One view of the chest was acquired. COMPARISON: [facility], CHEST 1 VIEW, 12/07/2014, 22:19. [facility], CHEST 2 VIEW, 12/29/2010, 14:47. FINDINGS: Surgical changes and devices: None. Lungs and pleura: On this semiupright portable chest examination, no large pneumothorax or large pleural effusions are seen. No focal infiltrates are seen. Elevation of the right hemidiaphragm can be seen. Mediastinum: Mediastinal contours appear normal. Heart size is normal. Bones and chest wall: No suspicious bony lesions. Overlying soft tissues appear unremarkable. IMPRESSION: No focal infiltrates are seen. Elevation of the right hemidiaphragm can be seen. Dictated by: Remi Flores M.D. on 12/02/2020 at 16:54 Approved by: Remi Flores M.D. on 12/02/2020 at 16:55 US - abdomen: Radiologist's Impression: Read by overnight radiologist prior cholecystectomy with no significant biliary ductal dilatation. CBD 6.5 mm. As an gallbladder. CT scan - abdomen/pelvis: Radiologist's Impression: [address] [id number] Scan ReportSigned Patient: Wander Mckenzie MMR#: [id number]: 3Acct:[id number]/Sex: 70 / MDate of Service: 12/02/20Loc: EDAccession Number: [id number] Procedure: CT abdomen pelvis w con Ordering Provider: Domingo Manjarrez MD PROCEDURE: CT ABDOMEN PELVIS W CON INDICATIONS: IV contrast only/abdominal pain/fever TECHNIQUE: After the administration of oral and IV contrast, axial sections were acquired from the lung bases to the pubic symphysis. Coronal and sagittal reformats were performed. For radiation dose reduction, the following was used: automated exposure control, adjustment of mA and/or kV according to patient size. COMPARISON: [facility], CT, ABDOMEN/PELVIS WITH CONTRAST, 09/24/2008, 9:26. FINDINGS: Lower thorax: Platelike atelectasis noted in the right lung base with elevation the right hemidiaphragm. Liver: Normal in size and attenuation. No contour deformity present. Biliary system: Cholecystectomy. No intra or extrahepatic bile duct dilation. Pancreas: Unremarkable without mass or inflammation evident. Spleen: Normal in size and density. Adrenals: Normal morphology and density. Reproductive system: Unremarkable as visualized. Urinary system: Normal renal size and attenuation. No renal calculi, hydronephrosis, or solid mass present. Urinary bladder unremarkable. Gastrointestinal system: The bowel appears unremarkable with no evidence of bowel obstruction or inflammation. The stomach appears unremarkable. Multiple diverticula arise from the sigmoid colon without obstruction Appendix: Normal appendix identified. No evidence of appendicitis. Peritoneal spaces: In the left lower quadrant, there is focal inflammatory change to focus on mesenteric fat centered on image 2/74 measuring overall 2.5 x 6.4 cm . Sigmoid colon is adjacent but not particularly inflamed. Is no evidence of abscess. No mesenteric or retroperitoneal adenopathy. No free air. No free fluid. Vasculature: The IVC, aorta and iliac vasculature are unremarkable. Musculoskeletal: Normal bone mineralization. No acute fractures. Left inguinal hernia contains fat without bowel involvement. Arthritic changes noted in both hips IMPRESSION: 1. Localized inflammatory change centered on mesenteric fat in the left lower quadrant. Most likely explanation would be self-limited panniculitis. Nevertheless, the sigmoid colon is adjacent, and focal asymmetric diverticulitis would be less likely differential. Consider short-term interval follow-up if clinically warranted. 2. Platelike atelectasis in the right lung base. Left inguinal hernia contains fat without Approved by: Brice Devlin M.D. on 12/02/2020 at 18:05 CT scan - chest: Radiologist's Impression: [address] [id number] Scan ReportSigned Patient: Wander Mckenzie [facility]#: [id number]: 3Acct:[id number]/Sex: 70 / MDate of Service: 12/02/20Loc: EDAccession Number: [id number] Procedure: CT chest wo con Ordering Provider: Domingo Manjarrez MD PROCEDURE: CT CHEST WO CON INDICATIONS: Dyspnea TECHNIQUE: Noncontrast 5 mm thick sections acquired from the pulmonary apices to the posterior costophrenic angles. 1 mm lung window, 5 mm thick coronal and sagittal and 7 mm axial MIP reformats were then acquired. For radiation dose reduction, the following was used: automated exposure control, adjustment of mA and/or kV according to patient size. COMPARISON: [facility], CT, CT ABDOMEN PELVIS W CON, 12/02/2020, 18:27. FINDINGS: Image quality: Excellent. Lungs and pleura: There is atelectasis and possible pneumonia in the right lower lobe elevation of the right hemidiaphragm. Patchy nodular ground-glass opacities in the lingula peripherally are nonspecific. No pleural effusions or pneumothorax. Central and peripheral airways are patent and normal in caliber. Mediastinum: Heart size is normal. No pericardial effusion. No mediastinal adenopathy by size criteria. Thoracic aorta and central pulmonary arteries are normal in size. Esophagus is normal in caliber. No hiatal hernia. Bones and chest wall: No suspicious bony lesions. No vertebral body compression fractures. No axillary or supraclavicular adenopathy by size criteria. Thyroid gland is normal. Abdomen: See separately dictated CT of the abdomen and pelvis. IMPRESSION: Atelectasis of the right lower lobe with elevation of the right hemidiaphragm and possible superimposed pneumonia. Dictated by: Gino Fontaine M.D. on 12/02/2020 at 19:53 Approved by: Gino Fontaine M.D. on 12/02/2020 at 19:58 ECG Data Interpretation: 1st EKG 1725, sinus tachycardia rate 105 left bundle-branch block, PVCs. Repeat EKG at 6:24 p.m. sinus rhythm with PVC rate 94, continued left bundle-branch block. Left bundle branch block is not new. Please see stress test from earlier this year above. MDM Narrative Medical decision making narrative: Appropriate for discharge home. Will treat clinically for possible community-acquired pneumonia however there are pending serology laboratory studies to be followed by primary care. I have spoken with Infectious Disease as well as primary care physician. Patient comfortable with discharge home and follow-up. Return precautions reviewed with patient and . Not toxic at discharge. Discharge Plan Departure Patient Disposition: Home Clinical Impression: Community acquired pneumonia Qualifiers: Laterality: right Lung location: lower lobe of lung Qualified Code(s): J18.9 - Pneumonia, unspecified organism Instructions: DI for Pneumonia -- Adult, DI for Atypical Pneumonia Activity Restrictions/Additional Instructions: Call family doctor in the morning for office recheck this Wednesday. Continue antibiotics tomorrow. Continue ibuprofen/Motrin for fever. There are laboratory studies are pending results. These are to be followed by family doctor. She has been contacted tonight. Return if any trouble breathing or any worsening conditions or any questions or concerns. Keep well hydrated. Prescriptions: New doxycycline monohydrate 100 mg capsule 100 mg PO BID Qty: 20 RF: 0 No Action multivitamin Tablet 1 tab PO DAILY RF: 0 omega 2-ekj-loc-fish oil [Fish Oil] 1,000 mg (120 mg-180 mg) Capsule RF: 0 meloxicam 15 mg tablet 15 mg PO DAILY Qty: 30 RF: 2 Referrals: Arlet Foley MD [Primary Care Provider] -
[2020-12-02] MEDS: ACETAMINOPHEN 325 MG TABLET 975 MG PO (18:20)
--- NOTE | 2020-12-02 18:23 | DI.CT.S_ITS ---
PROCEDURE: CT ABDOMEN PELVIS W CON INDICATIONS: IV contrast only/abdominal pain/fever TECHNIQUE: After the administration of oral and IV contrast, axial sections were acquired from the lung bases to the pubic symphysis. Coronal and sagittal reformats were performed. For radiation dose reduction, the following was used: automated exposure control, adjustment of mA and/or kV according to patient size. COMPARISON: [facility], CT, ABDOMEN/PELVIS WITH CONTRAST, 09/24/2008, 9:26. FINDINGS: Lower thorax: Platelike atelectasis noted in the right lung base with elevation the right hemidiaphragm. Liver: Normal in size and attenuation. No contour deformity present. Biliary system: Cholecystectomy. No intra or extrahepatic bile duct dilation. Pancreas: Unremarkable without mass or inflammation evident. Spleen: Normal in size and density. Adrenals: Normal morphology and density. Reproductive system: Unremarkable as visualized. Urinary system: Normal renal size and attenuation. No renal calculi, hydronephrosis, or solid mass present. Urinary bladder unremarkable. Gastrointestinal system: The bowel appears unremarkable with no evidence of bowel obstruction or inflammation. The stomach appears unremarkable. Multiple diverticula arise from the sigmoid colon without obstruction Appendix: Normal appendix identified. No evidence of appendicitis. Peritoneal spaces: In the left lower quadrant, there is focal inflammatory change to focus on mesenteric fat centered on image 2/74 measuring overall 2.5 x 6.4 cm . Sigmoid colon is adjacent but not particularly inflamed. Is no evidence of abscess. No mesenteric or retroperitoneal adenopathy. No free air. No free fluid. Vasculature: The IVC, aorta and iliac vasculature are unremarkable. Musculoskeletal: Normal bone mineralization. No acute fractures. Left inguinal hernia contains fat without bowel involvement. Arthritic changes noted in both hips IMPRESSION: 1. Localized inflammatory change centered on mesenteric fat in the left lower quadrant. Most likely explanation would be self-limited panniculitis. Nevertheless, the sigmoid colon is adjacent, and focal asymmetric diverticulitis would be less likely differential. Consider short-term interval follow-up if clinically warranted. 2. Platelike atelectasis in the right lung base. Left inguinal hernia contains fat without Approved by: Brice Devlin M.D. on 12/02/2020 at 18:05
[2020-12-02 18:31] LABS: COVID19 - ADMIT (NP swab/PCR) Negative (Negative)
[2020-12-02 19:27] LABS: Adenovirus Not Detected (Not Detect); Coronavirus 229E Not Detected (Not Detect); Coronavirus HKU1 Not Detected (Not Detect); Coronavirus NL 63 Not Detected (Not Detect); Coronavirus OC43 Not Detected (Not Detect); Human Metapneumovirus Not Detected (Not Detect); Human Rhinovirus/Enterovirus Not Detected (Not Detect); Influenza A Not Detected (Not Detect); Influenza B Not Detected (Not Detect)
[2020-12-02 19:28] LABS: Bordetella pertussis Not Detected (Not Detecte); Chlamydophila pneumoniae Not Detected (Not Detect); Mycoplasma pneumoniae Not Detected (Not Detect); Parainfluenza Virus 1 Not Detected (Not Detect); Parainfluenza Virus 2 Not Detected (Not Detect); Parainfluenza Virus 3 Not Detected (Not Detect); Parainfluenza Virus 4 Not Detected (Not Detect); Respiratory Syncytial Virus Not Detected (Not Detect)
--- NOTE | 2020-12-02 19:35 | DI.CT.S_ITS ---
PROCEDURE: CT CHEST WO CON INDICATIONS: Dyspnea TECHNIQUE: Noncontrast 5 mm thick sections acquired from the pulmonary apices to the posterior costophrenic angles. 1 mm lung window, 5 mm thick coronal and sagittal and 7 mm axial MIP reformats were then acquired. For radiation dose reduction, the following was used: automated exposure control, adjustment of mA and/or kV according to patient size. COMPARISON: [facility], CT, CT ABDOMEN PELVIS W CON, 12/02/2020, 18:27. FINDINGS: Image quality: Excellent. Lungs and pleura: There is atelectasis and possible pneumonia in the right lower lobe elevation of the right hemidiaphragm. Patchy nodular ground-glass opacities in the lingula peripherally are nonspecific. No pleural effusions or pneumothorax. Central and peripheral airways are patent and normal in caliber. Mediastinum: Heart size is normal. No pericardial effusion. No mediastinal adenopathy by size criteria. Thoracic aorta and central pulmonary arteries are normal in size. Esophagus is normal in caliber. No hiatal hernia. Bones and chest wall: No suspicious bony lesions. No vertebral body compression fractures. No axillary or supraclavicular adenopathy by size criteria. Thyroid gland is normal. Abdomen: See separately dictated CT of the abdomen and pelvis. IMPRESSION: Atelectasis of the right lower lobe with elevation of the right hemidiaphragm and possible superimposed pneumonia. Dictated by: Gino Fontaine M.D. on 12/02/2020 at 19:53 Approved by: Gino Fontaine M.D. on 12/02/2020 at 19:58
--- NOTE | 2020-12-02 21:21 | DI.US.S_ITS ---
PROCEDURE: US ABDOMEN LIMITED INDICATIONS: RUQ PAIN TECHNIQUE: Real-time focused scanning was performed of the abdomen, with image documentation. COMPARISON: None. FINDINGS: Liver: The liver has a normal size and echogenicity. No intrahepatic biliary ductal dilatation. Gallbladder: Status post cholecystectomy. Biliary tree: No intra or extra hepatic biliary ductal dilatation. The common bile duct measures 6.5 millimeters, within normal limits given patient age and previous history of cholecystectomy. Pancreas: Not well seen, however no gross abnormality. IMPRESSION: No acute ultrasound abnormality of the right upper quadrant. Dictated by: Gino Fontaine M.D. on 12/02/2020 at 22:26 Approved by: Gino Fontaine M.D. on 12/02/2020 at 22:27
[2020-12-02] MEDS: IBUPROFEN 400 MG TABLET 800 MG PO (23:05)
[2020-12-02] MEDS: DOXYCYCLINE HYCLATE 100 MG TABLET PO (23:05)
[2020-12-04 02:24] LABS: HBsAg Screen Negative (Negative); Hepatitis A Antibody IgM Negative (Negative); Hepatitis B Core Antibody IgM Negative (Negative); Hepatitis C Antibody <0.1 s/co ratio (0.0-0.9)
[2020-12-05 13:53] LABS: Miscellaneous to LabCorp <0.5
[2020-12-13 08:46] LABS: Miscellaneous to Univ of WA LEPTOSPIRA SEROLOGY
== END 2020-12-02 23:15 | disposition home or self-care (01) ==
PROVIDERS: Emergency Medicine; Emergency Provider Emergency Medicine; PCP Family Medicine
DX: J18.9 Pneumonia, unspecified organism (principal); R06.02 Shortness of breath; R11.2 Nausea with vomiting, unspecified; R00.0 Tachycardia, unspecified; Z20.822 Contact with and (suspected) exposure to COVID-19; R10.9 Unspecified abdominal pain
CPT/HCPCS: 36415; 71045; 71250; 74177; 76705; 80053; 80074; 81001; 83605; 83690; 84145; 85025; 87040; 87633; 87635; 93005; 93010; 96360; 96361; 99285; C9803; Q9967

== ENCOUNTER → 2020-12-05 09:13 | Outpatient (CLI) | payer MEDICARE, OTHER, SELFPAY ==
--- NOTE | 2020-12-05 | DI.CT.S_ITS ---
PROCEDURE: CT ABDOMEN PELVIS W CON INDICATIONS: left lower quad pain TECHNIQUE: After the administration of oral and intravenous contrast, axial sections were acquired from the lung bases to the pubic symphysis. Coronal and sagittal reformats were performed. For radiation dose reduction, the following was used: automated exposure control, adjustment of mA and/or kV according to patient size. COMPARISON:[facility], CT, ABDOMEN/PELVIS WITH CONTRAST, 09/24/2008, 9:26. [facility], CT, CT ABDOMEN PELVIS W CON, 12/02/2020, 18:27. FINDINGS: ABDOMEN: Lung bases: Platelike atelectasis involving the right lung base. Elevation of the right hemidiaphragm. Heart: No significant findings. Liver: Mild hepatic steatosis. Gallbladder: Surgically absent. Bile ducts: Normal. Pancreas: Normal. Spleen: Normal. Adrenals: Normal. Kidneys and Ureters: Normal. Stomach and duodenum: Normal. Bowel: There is mild diffuse stool seen throughout the colon. Numerous colonic diverticula seen in the sigmoid colonic region. There is suggestion of long segment mural thickening. No specific acute inflamed diverticulum is identified. Other: No free fluid or air. Abdominal nodes: Shotty subcentimeter left pelvic lymph nodes. There is non-opacified possibly thrombosed vessel which probably represents the inferior mesenteric vein. There is surrounding inflammatory stranding seen in the fat and trace amount of left pelvic sidewall fluid. Adjacent surrounding prominent subcentimeter lymph nodes. Overall, grossly unchanged appearance since 12/02/20. No definite bowel wall thickening identified at this time. Aorta and IVC: Normal in size. Ventral wall: Normal. PELVIS: Bladder: Partially decompressed otherwise unremarkable. Prostate enlarged. Inguinal region: No hernia. Pelvic nodes: Normal. Bones: No suspicious bony lesions. No vertebral body compression fractures. 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 Surgical consultation recommended. Long segment mural thickening involving the sigmoid colon, with numerous colonic diverticula. This could reflect chronic or acute on chronic diverticulitis. Findings (including all critical results) and recommendations were immediately and personally telephoned and discussed with Dr. Verma (covering for Dr. Foley) on 12-05-20 12:31 Dictated by: Zain Coppola M.D. on 12/05/2020 at 11:49 Approved by: Zain Coppola M.D. on 12/05/2020 at 12:33
[2020-12-05 09:42] LABS: Add Manual Diff / Slide Review NO; Basophils Absolute Auto 100 /uL (0-100); Basophils Percent Auto 0.5 % (0-2); Eosinophils Absolute Auto 200 /uL (0-450); Eosinophils Percent Auto 1.6 % (2-4); Hematocrit 37.6 % (41-53); Hemoglobin 12.6 g/dL (13.5-17.5); Lymphocytes Absolute Auto 1600 /uL (1100-4500); Lymphocytes Percent Auto 14.4 % (25-40); Mean Corpuscular HGB Conc 33.7 % (30-36); Mean Corpuscular Hemoglobin 30.2 PG (26-34); Mean Corpuscular Volume 89.7 fL (80-100); Monocytes Absolute Auto 1100 /uL (0-900); Monocytes Percent Auto 9.8 % (3-14); Neutrophils Absolute Auto 8100 /uL (1500-7000); Neutrophils Percent Auto 73.7 % (50-75); Platelet Count 313 X10^3/uL (150-400); Red Blood Cell Count 4.19 X10^6/uL (4.5-5.9); Red Cell Distribution Width 14.5 % (11.6-14.8)
[2020-12-05 09:44] LABS: Lactate (Lactic Acid) 0.8 mmol/L (0.7-2.1)
[2020-12-05 09:53] LABS: Appearance Urine UA CLEAR; Bilirubin Urine UA NEGATIVE (NEGATIVE); Color Urine UA YELLOW; Glucose Urine UA NEGATIVE (Negative); Ketones Urine UA NEGATIVE (NEGATIVE); Leukocyte Esterase Urine UA NEGATIVE (NEGATIVE); Nitrite Urine UA NEGATIVE (Negative); Occult Blood Urine UA NEGATIVE (Negative); Protein Urine UA 1+ (Negative); Specific Gravity Urine UA 1.025 (1.000-1.035)
[2020-12-05 10:05] LABS: Alanine Aminotransferase 195 IU/L (<50); Albumin 3.3 g/dL (3.5-5.0); Albumin Globulin Ratio 1.1 (1.0-2.8); Alkaline Phosphatase 353 U/L (38-126); Aspartate Aminotransferase 97 IU/L (17-59); BUN Creatinine Ratio 19.7 (6-22); Bilirubin Total 0.7 mg/dL (0.2-1.3); Blood Urea Nitrogen 15 mg/dL (9-20); Calcium 8.8 mg/dL (8.4-10.2); Carbon Dioxide 26 mmol/L (22-32); Chloride 104 mmol/L (98-107); Estimated Glomerular Filt Rate > 60.0 mL/min (>60); Globulin 3.1 g/dL (1.7-4.1); Glucose 110 mg/dL (80-110); HEMOLYSIS < 15 (0-50); Potassium 3.6 mmol/L (3.4-5.1); Sodium 137 mmol/L (137-145); Total Protein 6.4 g/dL (6.3-8.2)
[2020-12-05 10:08] LABS: Erythrocyte Sedimentation Rate 41 MM/HR (0-15)
[2020-12-05 10:16] LABS: C-Reactive Protein Quant 20.2 mg/dL (<1.0)
[2020-12-05 10:18] LABS: Procalcitonin 0.42 ng/mL (<0.5)
[2020-12-05 10:21] LABS: Bacteria Urine Moderate (10-30); Culture Indicated Urine Cult Not Indicated; Mucus Urine 2+ (Negative); RBC Urine 0-1/HPF (0-5/HPF); Squamous Epithelial Cell Urine 0-1 /HPF (0-5/HPF); WBC Urine 1-5/HPF (0-5/HPF)
[2020-12-05 16:02] LABS: HIV 1 & 2 Ab/Ag 4th Gen Combo NEGATIVE (NEGATIVE)
[2020-12-06 20:35] LABS: Treponema pallidum Antibodies Non Reactive (Non Reactive)
== END ==
PROVIDERS: PCP Family Medicine; Referring Provider Family Medicine; Visit Provider Family Medicine
DX: R10.32 Left lower quadrant pain (principal); R50.9 Fever, unspecified; K76.0 Fatty (change of) liver, not elsewhere classified; K57.30 Diverticulosis of large intestine without perforation or abscess without bleeding; Z90.49 Acquired absence of other specified parts of digestive tract
CPT/HCPCS: 36415; 74177; 80053; 81001; 83605; 84145; 85025; 85651; 86140; 86780; 87389

== ENCOUNTER → 2020-12-06 12:42 | Outpatient (CLI) | payer MEDICARE, OTHER, SELFPAY ==
[2020-12-06 14:10] LABS: INR 1.5 (0.9-1.3); Prothrombin Time 16.4 SECONDS (10.1-12.7)
[2020-12-06 14:26] LABS: HEMOLYSIS < 15 (0-50)
[2020-12-06 14:30] LABS: Alanine Aminotransferase 197 IU/L (<50); Albumin 3.7 g/dL (3.5-5.0); Albumin Globulin Ratio 1.1 (1.0-2.8); Alkaline Phosphatase 366 U/L (38-126); Aspartate Aminotransferase 85 IU/L (17-59); BUN Creatinine Ratio 16.9 (6-22); Bilirubin Total 0.8 mg/dL (0.2-1.3); Blood Urea Nitrogen 13 mg/dL (9-20); Calcium 8.9 mg/dL (8.4-10.2); Carbon Dioxide 27 mmol/L (22-32); Chloride 102 mmol/L (98-107); Estimated Glomerular Filt Rate > 60.0 mL/min (>60); Globulin 3.3 g/dL (1.7-4.1); Glucose 83 mg/dL (80-110); Potassium 3.5 mmol/L (3.4-5.1); Sodium 138 mmol/L (137-145)
[2020-12-06 15:31] LABS: C-Reactive Protein Quant 16.6 mg/dL (<1.0)
[2020-12-06 16:50] LABS: Rheumatoid Factor < 8.6 IU/mL (<12.0)
[2020-12-07 10:28] LABS: SARS CoV19 IgG Positive (Negative)
[2020-12-09 14:14] LABS: Cardiolipin Ab IgA <9 APL U/mL (0-11); Cardiolipin Ab IgG <9 GPL U/mL (0-14); Cardiolipin Ab IgM <9 MPL U/mL (0-12)
[2020-12-10 09:56] LABS: Protein C-Functional 95 % (73-180); Protein S-Functional 97 % (63-140)
[2020-12-11 12:11] LABS: PT 1:1 NP 10.8 sec (9.1-12.0); aPTT 30.4 sec (22.9-30.2)
[2020-12-11 12:11] LABS: QuantiFERON Mitogen Value >10.00 IU/mL (.); QuantiFERON Nil Value 0.08 IU/mL (.); QuantiFERON TB Gold Plus Negative (Negative); QuantiFERON TB1 Ag Value 0.09 IU/mL (.)
== END ==
PROVIDERS: PCP Family Medicine; Referring Provider Family Medicine; Visit Provider Family Medicine
DX: K55.069 Acute infarction of intestine, part and extent unspecified (principal); R50.9 Fever, unspecified
CPT/HCPCS: 36415; 80053; 81241; 85300; 85302; 85303; 85306; 85610; 85611; 85730; 85732; 86038; 86140; 86147; 86430; 86480; 86592; 86769

== ENCOUNTER → 2021-02-18 16:01 | Outpatient (CLI) | payer MEDICARE, OTHER, SELFPAY ==
[2021-02-19 09:42] LABS: PSA Free % 20.9 % (.); PSA, Total 10.6 ng/mL (0.0-4.0)
== END ==
PROVIDERS: PCP Family Medicine; Referring Provider Urology; Visit Provider Urology
DX: R97.20 Elevated prostate specific antigen [PSA] (principal)
CPT/HCPCS: 36415; 84153; 84154

== ENCOUNTER → 2021-08-18 12:22 | Outpatient (CLI) | payer MEDICARE, OTHER, SELFPAY ==
--- NOTE | 2021-08-18 12:26 | DI.RAD.S_ITS ---
PROCEDURE: XR CHEST 2V INDICATIONS: FOLLOW UP ON CHEST TECHNIQUE: 2 views of the chest were acquired. COMPARISON: [facility], , XR CHEST 1V, 12/02/2020, 17:14. FINDINGS: Surgical changes and devices: None. Lungs and pleura: No consolidation, pleural effusions or pneumothorax. Elevation of the right diaphragm with atelectasis. Mediastinum: Mediastinal contours are normal. Heart size is normal. Bones and chest wall: No suspicious bony abnormalities. Soft tissues appear unremarkable. IMPRESSION: No acute cardiopulmonary abnormality. Dictated by: Bo You M.D. on 08/18/2021 at 13:12 Approved by: Bo You M.D. on 08/18/2021 at 13:12
== END ==
PROVIDERS: PCP Family Medicine; Referring Provider Family Medicine; Visit Provider Family Medicine
DX: J18.9 Pneumonia, unspecified organism (principal)
CPT/HCPCS: 71046

== ENCOUNTER → 2022-04-29 12:13 | Outpatient (CLI) | payer MEDICARE, OTHER, SELFPAY ==
--- NOTE | 2022-04-29 | DI.RAD.S_ITS ---
PROCEDURE: XR LUMBAR SPINE 2-3V INDICATIONS: Radiculopathy, lumbar region TECHNIQUE: 3 views of the lumbar spine were acquired. COMPARISON: None. FINDINGS: Bones: 5 atx-dla-[id number] vertebrae are present. There is normal bony alignment. Moderate disc height loss L3-4 and L4-5. Mild disc height loss L5-S1. Minor anterior endplate spurs at multiple levels. No vertebral body compression fractures. Hip arthroplasty artifact are partially seen. No suspicious bony lesions. Soft tissues: Overlying bowel gas pattern is normal. No suspicious soft tissue calcifications. Cholecystectomy clips. IMPRESSION: 1. Mild to moderate lower lumbar spondylosis. Dictated by: Cammy Lowe M.D. on 04/29/2022 at 23:44 Approved by: Cammy Lowe M.D. on 04/29/2022 at 23:45
== END ==
PROVIDERS: PCP Family Medicine; Referring Provider Family Medicine; Visit Provider Family Medicine
DX: M47.26 Other spondylosis with radiculopathy, lumbar region
CPT/HCPCS: 72100

== ENCOUNTER → 2022-05-25 08:23 | Outpatient (CLI) | payer MEDICARE, OTHER, SELFPAY ==
--- NOTE | 2022-05-25 08:43 | DI.MRI.S_ITS ---
PROCEDURE: MR LUMBAR SPINE WO CON INDICATIONS: Radiculopathy, lumbar region TECHNIQUE: Noncontrast sagittal T1 spin echo and T2 fast echo, sagittal STIR, and T2 fast spin echo through the lumbar spine. In cases with scoliosis, additional coronal T2 fast spin echo may be performed. COMPARISON: None. FINDINGS: Image quality: Excellent. Alignment and Curvature: There is normal bony alignment. Bone Marrow: Marrow is of normal overall signal. No acute vertebral body compression fractures. Spinal Cord: Conus medullaris terminates at the L1 level. Visualized cord demonstrates normal signal and size. Paraspinous Soft Tissues: No paravertebral masses. T12-L1: Mild disc bulge. No canal stenosis or foraminal stenosis. L1-L2: No canal stenosis or foraminal stenosis. L2-L3: Disc bulge. Facet hypertrophy. No significant central canal stenosis. There is focal left foraminal annulus tear plus disc protrusion. Disc material abuts the left L3 nerve root in the left lateral recess as well as left L2 nerve root in the left foramen. There is mild left foraminal stenosis. L3-L4: Disc bulge. Facet hypertrophy. No significant canal stenosis or foraminal stenosis. L4-L5: Moderate disc bulge. Prominent facet hypertrophy. Moderate canal stenosis. Mild bilateral foraminal stenosis. L5-S1: There is diffuse disc bulge. There is a very focal disc protrusion in the medial aspect of the right foramen. Reference image 8 of series 6. This may mildly impinge on the inferior aspect of the exiting right L5 nerve root. Additionally, there is a small focal disc extrusion and possible small associated free fragment which posterior deviates and impinges on the left S1 nerve root in the left lateral recess. There is mild central canal stenosis. There is bilateral facet arthropathy. IMPRESSION: 1. Multilevel facet arthropathy. 2. There is moderate canal stenosis at L4-L5. 3. At L5-S1, there is underlying mild central canal stenosis. There is a foraminal disc protrusion on the right which may potentially affect the right L5 nerve root. There is focal disc extrusion and possible small free fragment impinging on the left S1 nerve root in the left lateral recess, likely resulting in a left S1 radiculopathy. 4. Findings at L2-L3 may potentially result in left L2 and/or left L3 nerve root symptoms. Question: Does this patient have any left L2 or L3 nerve root symptomatology? Dictated by: Indio Pierce M.D. on 05/25/2022 at 9:52 Approved by: Indio Pierce M.D. on 05/25/2022 at 10:02
== END ==
PROVIDERS: PCP Family Medicine; Referring Provider Family Medicine; Visit Provider Family Medicine
DX: M51.17 Intervertebral disc disorders with radiculopathy, lumbosacral region (principal); M47.26 Other spondylosis with radiculopathy, lumbar region; M47.27 Other spondylosis with radiculopathy, lumbosacral region; M48.061 Spinal stenosis, lumbar region without neurogenic claudication; M48.07 Spinal stenosis, lumbosacral region
CPT/HCPCS: 72148

== ENCOUNTER 2022-06-23 13:42 | Outpatient (CLI) | payer MEDICARE, OTHER, SELFPAY ==
[2022-06-23] VITALS (9 sets, daily range): BP systolic 129–171; BP diastolic 67–89; PULSE 63–80; RESP 14–20; TEMP 36.9; O2SAT 93–100
--- NOTE | 2022-06-23 13:44 | DI.RAD.S_ITS ---
PROCEDURE: PAIN L/S TRANSFORAMINAL INJECT INDICATIONS: SPONDYLOSIS COMPARISON: None. FINDINGS: Fluoroscopic spot filming was performed to verify placement of spinal needles at the right L5-S1 neural foramen level(s), as labeled on the films. Appropriate location(s) of the needle tip(s) was confirmed by injection of iodinated contrast. IMPRESSION: Access needle tip at the right L5-S1 neural foramen for transforaminal epidural steroid injection. Dictated by: Brooke Matthews MD, PhD on 06/23/2022 at 15:42 Approved by: Brooke Matthews MD, PhD on 06/23/2022 at 15:43
[2022-06-23] MEDS: MIDAZOLAM 2 MG/2 ML VIAL IV (14:28)
[2022-06-23] MEDS: BUPIVACAINE 0.25% (PF) VIAL 2 ML INJ (14:32)
[2022-06-23] MEDS: DEXAMETHASONE 10 MG/ML VIAL 20 MG INJ (14:33)
[2022-06-23] MEDS: BETAMETHASONE 30 MG/5 ML MDV 6 MG INJ (14:33)
[2022-06-23] MEDS: IOPAMIDOL 15 ML VIAL 3 ML INJ (14:33)
--- NOTE | 2022-06-23 14:45 | P.PCN_ITS ---
Date/Time/Diagnoses Date of procedure: 06/23/22 Time of procedure: 14:45 Pre-procedure diagnosis: FORAMINAL STENOSIS WITH LE SYMPTOMS Post-procedure diagnosis: same Procedure Notes Procedure: 1. FLUOROSCOPICALLY GUIDED CONTRAST CONTROLLED TRANSFORAMINAL EPIDURAL STEROID INJECTION - RIGHT L5/S1 TFESI Indications: Wander is referred by Dr. Foley for treatment of HNP with Right LE Symptoms Physician: Alonzo Zelaya Total Fluoroscopy time (seconds): 13 Total sedation minutes: 13 Complications: none Procedure in detail & Post-procedure care: FINDINGS Foraminal Nerve Root Compression secondary to disc disease and facet hypertrophy DESCRIPTION OF PROCEDURE Following review of allergy and review of potential side effects and complications, including, but not necessarily limited to, infection, allergic reaction, local tissue breakdown, stroke, temporary or permanent nerve injury, paralysis, and possible , the patient indicated that the patient understood and agreed to proceed. An informed consent document was signed by the patient, witnessed by a nurse, and placed in the patient's chart. Additionally, other treatment options including medications, modalities, and physical therapy were reviewed with the patient. After review of previous anaesthesic history and IV conscious sedation the patient was deemed safe to proceed with today?s procedure with IV conscious sedation as ASA class II designation. Safety time-out was performed to confirm patient ID, procedure to be performed and site of procedure. IV sedation was accomplished with a combination of 2mg of Versed was administered by the RN after DO order, titrated to patient comfort during the course of the procedure while the patient remained responsive to all verbal commands In the prone position following sterile prep and drape of the lumbar region, the right L5/S1 posterior neuroforamen was identified fluoroscopically. The skin was anesthetized via a 25-gauge 1.5-inch needle with 1% lidocaine solution. At this point, a 25-gauge 3.5-inch spinal needle was atraumatically introduced and advanced under fluoroscopic guidance through the posterior right L5/S1 neuroforamen to approximately the anterior aspect of the canal. Depth was confirmed on lateral view. Following negative aspiration, injection of approximately 1.5cc of Isovue 200 under live fluoroscopy in the AP view confirmed excellent flow along the nerve root, into the epidural space without vascular or intrathecal uptake observed Radiological data, including multiple fluoroscopic views of the lumbosacral spine, reveal a spinal needle at the right L5/S1 posterior neuroforamen. Subsequent views show flow of contrast material flowing superiorly and inferiorly along the nerve root confirming epidural flow. Subsequently, a test dose of 1.5 cc of 1% lidocaine solution was administered and patient was observed for two minutes for signs or symptoms of complications, including abdominal pain, shortness of breath, bilateral upper or lower extremity weakness, nausea and vomiting, prior to steroid injection. At this point, a total of 3cc or 20mg of dexamethasone and 6mg of betamethasone was injected without incident. The procedure tolerated the procedure well without signs or symptoms of complications prior to transfer to the recovery area continued monitoring without incident. The patient was then transferred to the recovery area where they were observed for an appropriate time after the injection. The patient reported a VAS score of 9 prior to the procedure and a post- procedure VAS of 1. POST OP INSTRUCTIONS The patient was provided a Pain Log to continue to record their response to the target-specific procedure prior to follow-up visit with their referring physician. Additionally, specific post-injection care instructions and a contact number to our office were provided if concerns arise regarding possible complications associated with the procedure are suspected.
== END 2022-06-23 15:02 | disposition home or self-care (01) ==
PROVIDERS: PCP Family Medicine; Referring Provider Physical Medicine & Rehabilitation; Visit Provider Physical Medicine & Rehabilitation
DX: M48.07 Spinal stenosis, lumbosacral region (principal); M51.17 Intervertebral disc disorders with radiculopathy, lumbosacral region
CPT/HCPCS: 64483; 99152; J0702; J1100; J2250; J3490

== ENCOUNTER → 2022-08-28 12:08 | Outpatient (CLI) | payer MEDICARE, OTHER, SELFPAY ==
--- NOTE | 2022-08-28 | DI.MRI.S_ITS ---
PROCEDURE: MR PELIS WO/W CON INDICATIONS: Elevated prostate specific antigen [PSA] TECHNIQUE: Coronal HASTE, axial T1 FSE with fat saturation, 3-plane nonbreath-hold T2 FSE. After the administration of contrast, dynamic axial, delayed axial and coronal VIBE or 2-D FLASH with fat saturation through the pelvis. Optional diffusion weighted imaging and ADC may be performed. COMPARISON: [facility], CT, CT ABDOMEN PELVIS W CON, 12/05/2020, 10:29. FINDINGS: Image quality: Diffusion weighted and dynamic contrast enhanced images are diagnostic. Prostate: Gland size is 6.2 x 5.5 x 4.8 cm; ellipsoid gland volume is 85 mL. No significant foci of intrinsic T1 hyperintensity to suggest hemorrhage. Multiple BPH nodules. Median lobe hypertrophy. Lesion size(s): Lesion 1: 1.9 x 1.3 cm, (4/16) Lesion 2: 1.1 x 0.5 cm, (4/). Lesion location(s) (sector): Lesion 1: Left paramedian mid gland anterior transitional zone Lesion 2: Left mid gland transitional zone Lesion description: Lesion 1: Oval Lesion 2: Oval T2 weighted imaging (T2WI) morphology score: Lesion 1: 3 Lesion 2: 3 Diffusion weighted imaging (DWI) morphology score: Lesion 1: 4 Lesion 2: 4 Dynamic contrast enhancement (DCE): Lesion 1: Present Lesion 2: Present Lesion PI-RADS score: Lesion 1: PI-RADS 3 Lesion 2: PI-RADS 3 Genitourinary system: Bladder wall thickness is normal. Distal ureters are non distended. Bowel and peritoneum: No pathologic free pelvic fluid. Inferior colon and small bowel loops are normal in caliber. Diverticulosis. Nodes and vessels: No pelvic or inguinal adenopathy by size criteria. Iliac vessels are normal in caliber. Soft tissues: Small fat containing left inguinal hernia. Bones: Marrow demonstrates normal overall signal, without lesions to suggest metastases. Bilateral hip arthroplasties. IMPRESSION: 1. Prostatomegaly with median lobe hypertrophy in multiple BPH nodules. 2. Left mid gland anterior transitional zone observation measuring 1.9 cm. PI-RADS 3. 3. Left mid gland transitional zone observation measuring 1.1 cm. PI-RADS 3. 4. No enlarged lymph nodes. Dictated by: Jose L Mackay M.D. on 08/28/2022 at 14:37 Approved by: Jose L Mackay M.D. on 08/28/2022 at 14:54
== END ==
PROVIDERS: PCP Family Medicine; Referring Provider Physician Assistant Medical; Visit Provider Physician Assistant Medical
DX: R97.20 Elevated prostate specific antigen [PSA] (principal); N40.0 Benign prostatic hyperplasia without lower urinary tract symptoms
CPT/HCPCS: 72197; A9579

== ENCOUNTER → 2023-03-09 16:04 | Outpatient (CLI) | payer MEDICARE, OTHER, SELFPAY ==
--- NOTE | 2023-03-09 | DI.RAD.S_ITS ---
PROCEDURE: XR ANKLE RT 2V INDICATIONS: RIGHT ANKLE PAIN TECHNIQUE: 2 views of the ankle were acquired. COMPARISON: [facility], CR, XR ANKLE LT MIN 3V, 03/15/2020, 17:14. FINDINGS: Bones: No fractures or dislocations. Ankle mortise is normally aligned. No suspicious bony lesions. Soft tissues: No tibiotalar joint effusion. Achilles tendon appears normal. IMPRESSION: No acute bony abnormality or significant effusion. Dictated by: Elder Christianson M.D. on 03/09/2023 at 16:43 Approved by: Elder Christianson M.D. on 03/09/2023 at 16:45
== END ==
PROVIDERS: PCP Family Medicine; Referring Provider Family Medicine; Visit Provider Family Medicine
DX: M25.571 Pain in right ankle and joints of right foot (principal)
CPT/HCPCS: 73600

== ENCOUNTER → 2023-11-27 15:53 | Outpatient (CLI) | payer MEDICARE, OTHER, SELFPAY ==
--- NOTE | 2023-11-27 15:54 | DI.MRI.S_ITS ---
PROCEDURE: MR PELVIC PROSTATE PROTOCOL INDICATIONS: ELEVATED PSA,URINARY URGENCY TECHNIQUE: Coronal HASTE, axial T1 FSE with fat saturation, 3-plane nonbreath-hold T2 FSE. After the administration of contrast, dynamic axial, delayed axial and coronal VIBE or 2-D FLASH with fat saturation through the pelvis. Diffusion weighted imaging and ADC was performed. COMPARISON: [facility], CT, CT ABDOMEN PELVIS W CON, 12/05/2020, 10:29. [facility], MR, MR PELVIS WO/W CON, 08/28/2022, 12:18. FINDINGS: Image quality: Diffusion weighted and dynamic contrast enhanced images are diagnostic. Prostate: Gland size is 6.7 x 5.5 x 4.5 cm; ellipsoid gland volume is 86 mL. No significant foci of intrinsic T1 hyperintensity to suggest hemorrhage. Multiple BPH nodules. Median lobe hypertrophy. Lesion 1: Location: Right mid gland peripheral zone, on axial series 5, image 13 and sagittal series 7, image 8. Size: 1 x 0.8 cm, (/). T2W signal: Hypointense. DWI signal: Markedly hyperintense. ADC signal: Markedly hypointense. Enhancement: Absent Extracapsular extension: No. No neurovascular involvement. PI-RADS score: 4 Lesion 2: Location: Left paramedian anterior transitional zone, on axial series 5, image 16 and sagittal series 7, image 13. Size: 2.1 x 1.5 cm, (5/16), previously remeasured 2.2 x 1.6 cm. Not significantly changed. T2W signal: Hypointense. DWI signal: Mildly hyperintense. ADC signal: Markedly hypointense. Enhancement: Yes. Extracapsular extension: No. No neurovascular involvement. PI-RADS score: 4 (upgraded) Lesion 3: Location: Left transitional zone, on axial series 5, image 17 and sagittal series 7, image 14. Size: 1.3 x 0.8 cm, (/16), previously remeasured 1.1 x 0.6 cm. Not significantly changed. T2W signal: Hypointense. DWI signal: Mildly hyperintense. ADC signal: Mildly hypointense. Enhancement: Yes. Extracapsular extension: No. No neurovascular involvement. PI-RADS score: 3 (not significantly changed) Genitourinary system: Bladder wall thickness is normal. Distal ureters are non distended. Bowel and peritoneum: No pathologic free pelvic fluid. Inferior colon and small bowel loops are normal in caliber. Diverticulosis. Nodes and vessels: No pelvic or inguinal adenopathy by size criteria. Iliac vessels are normal in caliber. Soft tissues: No inguinal hernias. Bones: Marrow demonstrates normal overall signal, without lesions to suggest metastases. Bilateral hip arthroplasties. IMPRESSION: 1. Prostatomegaly with multiple BPH nodules and median lobe hypertrophy. 2. Right mid gland peripheral zone observation measuring 1 cm. PI-RADS 4. 3. Left anterior transitional zone observation measuring 2.1 cm. PI-RADS 4. 4. Left transitional zone observation measuring 1.3 cm. PI-RADS 3. 5. No enlarged lymph nodes. Recommend prostate biopsy if not yet performed. Dictated by: Jose L Mackay M.D. on 11/29/2023 at 15:31 Approved by: Jose L Mackay M.D. on 11/29/2023 at 16:29
== END ==
LOC: MRI 15:54
PROVIDERS: PCP Family Medicine; Referring Provider Physician Assistant Medical; Visit Provider Physician Assistant Medical
DX: N40.2 Nodular prostate without lower urinary tract symptoms (principal); R97.20 Elevated prostate specific antigen [PSA]; R39.15 Urgency of urination; K57.90 Diverticulosis of intestine, part unspecified, without perforation or abscess without bleeding
CPT/HCPCS: 72197; A9579

== ENCOUNTER → 2023-12-06 14:52 | Outpatient (CLI) | payer MEDICARE, OTHER, SELFPAY ==
--- NOTE | 2023-12-06 14:55 | DI.RAD.S_ITS ---
PROCEDURE: XR SHOULDER LT MIN 2V INDICATIONS: SHOULDER PAIN TECHNIQUE: 4 views of the shoulder were acquired. COMPARISON: [facility], CR, XR SHOULDER RT MIN 2V, 12/15/2018, 16:00. FINDINGS: Mild degenerative changes of the acromioclavicular joint. The joint space of the glenohumeral joint is well maintained. No acute fracture or dislocation. IMPRESSION: No acute bony abnormality. Dictated by: Rebecca Kim M.D. on 12/06/2023 at 17:38 Approved by: Rebecca Kim M.D. on 12/06/2023 at 17:40
== END ==
PROVIDERS: PCP Family Medicine; Referring Provider Family Medicine; Visit Provider Family Medicine
DX: M75.82 Other shoulder lesions, left shoulder (principal)
CPT/HCPCS: 73030

== ENCOUNTER → 2023-12-11 10:14 | Outpatient (CLI) | payer MEDICARE, OTHER, SELFPAY ==
--- NOTE | 2023-12-11 10:15 | DI.MRI.S_ITS ---
PROCEDURE: MR SHOULDER LT WO CON INDICATIONS: tendinitis of left rotator cuff TECHNIQUE: Noncontrast oblique coronal T2 fast spin echo with fat saturation, oblique sagittal T1 spin echo and T2 fast spin echo with fat saturation, axial T1 spin echo and T2 fast spin echo with fat saturation through the shoulder. COMPARISON: [facility], MR, MR SHOULDER RT WO CON, 01/09/2019, 13:06. FINDINGS: Image quality: Excellent. Rotator cuff: In the supraspinatus, there is mild tendinosis with low grade, articular sided tear at the critical zone at the anterior and mid fiber. There is combined articular sided and bursal sided, low-grade tear, superimposed on moderate tendinosis, at the critical zone at junction of the supraspinatus and infraspinatus (series 8, image 19). The the teres minor is unremarkable. The subscapularis is unremarkable. Mild muscle edema of the infraspinatus (series 6, image 9). No fatty atrophy. Bones and bursae: Mild degenerative changes of the acromioclavicular joint. Os acromiale is present. Type 1 acromion. Mild subacromial/subdeltoid bursitis. No acute fracture. Superior subluxation of the humeral head. Mild subchondral cystic changes with surrounding mild marrow edema at the greater tuberosity, reactive. Capsule and soft tissues: Labral degeneration. No labral tear. The extra-articular biceps tendon is extremely diminutive, concerning for near full-thickness tear. The intra-articular biceps tendon is not well visualized. No significant glenohumeral effusion. Trace subcoracoid bursitis. IMPRESSION: 1. Mild degenerative changes of the acromioclavicular joint. 2. Os acromiale is present. 3. Moderate tendinosis with combined low-grade tear at the junction of the supraspinatus and infraspinatus. 4. Additional low-grade tear of the supraspinatus. 5. Mild muscle edema of the infraspinatus. 6. Findings concerning for near full-thickness tear of the extra-articular biceps tendon. Dictated by: Rebecca Kim M.D. on 12/14/2023 at 11:15 Approved by: Rebecca Kim M.D. on 12/14/2023 at 11:30
== END ==
PROVIDERS: PCP Family Medicine; Referring Provider Family Medicine; Visit Provider Family Medicine
DX: M75.82 Other shoulder lesions, left shoulder (principal); Q74.0 Other congenital malformations of upper limb(s), including shoulder girdle; S46.812A Strain of other muscles, fascia and tendons at shoulder and upper arm level, left arm, initial encounter; M25.412 Effusion, left shoulder
CPT/HCPCS: 73221

== ENCOUNTER 2024-01-11 21:33 | Emergency (ER) | payer MEDICARE, OTHER, SELFPAY ==
[2024-01-11 21:35] VITALS: BP 148/78; PULSE 91; RESP 18; TEMP 37.4; O2SAT 95; BMI 29.7
[2024-01-11 22:11] LABS: Appearance Urine UA CLEAR; Bilirubin Urine UA NEGATIVE (NEGATIVE); Color Urine UA YELLOW; Glucose Urine UA NEGATIVE (Negative); Ketones Urine UA NEGATIVE (NEGATIVE); Leukocyte Esterase Urine UA TRACE (NEGATIVE); Nitrite Urine UA NEGATIVE (Negative); Occult Blood Urine UA 1+ (Negative); Protein Urine UA NEGATIVE (Negative); pH Urine UA 6.5 (4.5-8.0)
--- NOTE | 2024-01-11 22:12 | ED.MALEGU ---
HPI - Male Genitourinary General Chief complaint: Urogenital-Male Stated complaint: fever, neck ache, back ache, UTI Time Seen by Provider: 01/11/24 21:47 Source: patient and family Mode of arrival: Ambulatory History of Present Illness HPI Narrative: 73-year-old male presents for fever, body aches, dribbling urine stream. One week ago patient underwent prostate biopsy due to elevated PSA levels. He states that his biopsy came back benign. Two days after his biopsy patient began to feel poorly with general body aches, fatigue, night sweats. He was evaluated at the [facility] walk-in clinic and he was diagnosed with the urinary tract infection and started on Bactrim. Yesterday patient stated that he ran a 101 fever. He continued to run a fever today and his urology office referred him to the ER for evaluation. Took 800 mg of ibuprofen approximately 2 hours prior to arrival. Denies pain or other complaints Related Data Home Medications Medication Instructions Recorded Confirmed multivitamin 1 tab PO DAILY 05/26/18 07/13/23 rosuvastatin 10 mg tablet 10 mg PO DAILY 06/04/22 07/13/23 atorvastatin 10 mg tablet 10 mg PO DAILY 07/13/23 07/13/23 Previous Rx's Medication Instructions Recorded cefpodoxime 200 mg tablet 200 mg PO Q12H #20 tabs 01/12/24 tamsulosin 0.4 mg capsule 0.4 mg PO DAILY #30 caps 01/12/24 Allergies Allergy/AdvReac Type Severity Reaction Status Date / Time No Known Drug Allergies Allergy Verified 07/13/23 14:47 Patient History Medical History Herniated nucleus pulposus, L5-S1, right Lumbosacral radiculopathy at L5 Degenerative joint disease of right hip Avulsion fracture of ankle Degenerative joint disease, ankle, left Surgical History History of total right hip arthroplasty History of total left hip arthroplasty History of parathyroid surgery History of cholecystectomy Family History Mother Hyperlipidemia Diabetes mellitus Heart disease Cancer Father Diabetes mellitus Hyperlipidemia Social History household members: spouse Smoking Status: Former smoker alcohol intake: never Smoking Status: Former smoker alcohol intake frequency: other Substance Use Type: does not use Exam Initial Vital Signs Initial Vital Signs: Vital Signs Temperature 99.4 F 01/11/24 21:35 Pulse Rate 91 H 01/11/24 21:35 Respiratory Rate 18 01/11/24 21:35 Blood Pressure 148/78 H 01/11/24 21:35 Pulse Oximetry 95 01/11/24 21:35 Oxygen Delivery Method Room Air 01/11/24 21:35 Const: Awake, alert, no acute distress, nontoxic appearing Cardiac: regular rate, regular rhythm RESP: unlabored, clear bilaterally, no wheezing GI: Soft, nontender, nondistended, no rebound, no guarding MSK: no midline tenderness, no CVA tenderness, full range of motion, pulses equal Skin: Warm, Dry, intact, no rashes Neuro: AO x3, CN II-XII grossly intact, moves all extremities Course Orders Ordered: Discontinued Medications Sodium Chloride (Normal Saline 0.9%) 1,000 mls @ 1,000 mls/hr IV BOLUS ONE Stop: 01/11/24 22:54 Last Infusion: 01/11/24 23:17 Dose: Infused Documented By: Admin: 01/11/24 22:20 Dose: 1,000 mls/hr Documented By: MACY Ceftriaxone Sodium 2,000 mg/ (Sodium Chloride) 100 mls @ 200 mls/hr IV NOW ONE Stop: 01/11/24 21:57 Last Infusion: 01/11/24 23:17 Dose: Infused Documented By: Admin: 01/11/24 22:31 Dose: 200 mls/hr Documented By: MACY Vital Signs Vital signs: Vital Signs - 8 hr 01/11/24 21:35 01/11/24 22:39 01/11/24 23:00 Temperature 99.4 F Pulse Rate 91 H 78 77 Respiratory Rate 18 18 Blood Pressure 148/78 H Pulse Oximetry 95 96 96 Oxygen Delivery Method Room Air Room Air Room Air 01/11/24 23:00 01/11/24 23:30 01/11/24 23:30 Temperature Pulse Rate 73 Respiratory Rate 17 Blood Pressure 137/72 133/76 Pulse Oximetry 95 Oxygen Delivery Method Room Air 01/12/24 00:00 01/12/24 00:00 01/12/24 00:30 Temperature Pulse Rate 74 69 Respiratory Rate 18 18 Blood Pressure 132/77 Pulse Oximetry 95 95 Oxygen Delivery Method Room Air Room Air 01/12/24 00:30 Temperature Pulse Rate Respiratory Rate Blood Pressure 131/76 Pulse Oximetry Oxygen Delivery Method MDM - Male Genitourinary Differential Diagnosis Differential diagnosis: Likely urinary tract infection, prostatitis and acute retention of urine Lab Data 01/11/24 22:10 01/11/24 22:10 Labs: Lab Results 01/11/24 01/11/24 01/11/24 Range/Units 22:05 22:06 22:10 WBC 5.4 (4.5-11.0) X10^3/uL RBC 4.24 L (4.5-5.9) X10^6/uL Hgb 13.2 L (13.5-17.5) g/dL Hct 38.0 L (41-53) % MCV 89.8 (80-100) fL MCH 31.0 (26-34) PG MCHC 34.6 (30-36) % RDW 14.9 H (11.6-14.8) % Plt Count 245 (150-400) X10^3/uL Neut % (Auto) 69.8 (50-75) % Lymph % (Auto) 18.1 L (25-40) % [place] % (Auto) 10.6 (3-14) % Eos % (Auto) 0.7 L (2-4) % Baso % (Auto) 0.8 (0-2) % Neut # (Auto) 3700 (7790-5827) /uL Lymph # (Auto) 1000 L (1801-3906) /uL [place] # (Auto) 600 (0-900) /uL Eos # (Auto) 0 (0-450) /uL Baso # (Auto) 0 (0-100) /uL Sodium 131 L (137-145) mmol/L Potassium 3.8 (3.4-5.1) mmol/L Chloride 102 (98-107) mmol/L Carbon Dioxide 22 (22-32) mmol/L BUN 17 (9-20) mg/dL Creatinine 1.04 (0.66-1.25) mg/dL Estimated GFR > 60 (>60) mL/min BUN/Creatinine Ratio 16.3 (6-22) Glucose 127 H (80-110) mg/dL Lactate 0.8 (0.7-2.1) mmol/L Calcium 8.7 (8.4-10.2) mg/dL Total Bilirubin 0.5 (0.2-1.3) mg/dL AST 79 H (17-59) IU/L ALT 74 H (<50) IU/L Alkaline Phosphatase 130 H (38-126) U/L Total Protein 6.5 (6.3-8.2) g/dL Albumin 3.4 L (3.5-5.0) g/dL Globulin 3.1 (1.7-4.1) g/dL Albumin/Globulin Ratio 1.1 (1.0-2.8) Procalcitonin 0.291 (<0.5) ng/mL Urine Color Yellow Urine Appearance Clear Urine pH 6.5 (4.5-8.0) Ur Specific [place] 1.010 (1.000-1.035) Urine Protein Negative (Negative) Urine Glucose (UA) Negative (Negative) g/dL Urine Ketones Negative (NEGATIVE) Urine Occult Blood 1+ H (Negative) Urine Nitrate Negative (Negative) Urine Bilirubin Negative (NEGATIVE) Urine Urobilinogen 1.0 (0.2) E.U./dL Ur Leukocyte Esterase Trace H (NEGATIVE) Urine RBC 0-1/hpf (0-5/HPF) Urine WBC 5-10/hpf H (0-5/HPF) Ur Squamous Epith Cells 0-1 /hpf (0-5/HPF) Urine Bacteria Few (2-10) H (None) Urine Mucus 1+ H (Negative) Ur Culture Indicated? Specimen cultured Vol Urine Centrifuged 10ml (spun) Chlamy pneumoniae PCR Not detected (Not Detect) Adenovirus (PCR) Not detected (Not Detect) B. pertussis DNA (PCR) Not detected (Not Detect) B.parapertussis DNA PCR Not detected (Not Detecte) Coronavirus OC43 (PCR) Not detected (Not Detect) Coronavirus HKU1 (PCR) Not detected (Not Detect) Coronavirus 229E (PCR) Not detected (Not Detect) SARS-CoV-2 (PCR) Not detected (Not Detecte) Coronavirus NL63 (PCR) Not detected (Not Detect) Human Metapneumovir PCR Not detected (Not Detect) Influenza Type A (PCR) Not detected (Not Detect) Influenza Type B (PCR) Not detected (Not Detect) M. pneumoniae (PCR) Not detected (Not Detect) Parainfluenza 1 (PCR) Not detected (Not Detect) Parainfluenza 2 (PCR) Not detected (Not Detect) Parainfluenza 3 (PCR) Not detected (Not Detect) Parainfluenza 4 (PCR) Not detected (Not Detect) RSV (PCR) Not detected (Not Detect) Entero/Rhino (PCR) Not detected (Not Detect) Imaging Data Chest x-ray: Radiologist's Impression: PROCEDURE: XR CHEST 1V INDICATIONS: fevers, night sweats x 3 days TECHNIQUE: One view of the chest was acquired. COMPARISON: [facility], , XR CHEST 2V, 08/18/2021, 12:26. FINDINGS: Surgical changes and devices: None. Lungs and pleura: Chronic elevation of right hemidiaphragm is again seen. Mild pulmonary vascular congestion is. No definite focal infiltrate. No significant pleural effusion or pneumothorax. Mediastinum: Mediastinal contours appear normal. Heart size is enlarged. Bones and chest wall: No suspicious bony lesions. Overlying soft tissues appear unremarkable. IMPRESSION: Cardiomegaly and mild congestion. Chronic elevation of right hemidiaphragm. No definite focal infiltrate, pleural effusion or pneumothorax. Dictated by: Armond Unger M.D. on 01/12/2024 at 0:49 Approved by: Armond Unger M.D. on 01/12/2024 at 0:50 MDM Narrative Medical decision making narrative: Nontoxic appearing patient with fever for 1 day and malaise for several days following a prostate biopsy. Thankfully the patient's biopsy came back benign. Physical exam is unremarkable, patient has no pain, no CVA tenderness, no suprapubic fullness or abdominal pain. Laboratory work ordered. Empiric Rocephin and IV fluids ordered. Laboratory work reviewed, no significant abnormalities identified. WBC count 5.4, hemoglobin 13.2, platelets 245, sodium 131, potassium 3.8, creatinine 1.04, T bili 0.5, AST 79, ALT 74, alk phos 130. On review patient's liver enzymes have been waxing and waning as far back as 2020. UA with some bacteria and wbcs. Procalcitonin 0.291. Respiratory panel negative. While patient was have WBCs and bacteria in his urine, I do not necessarily believe that this could slowly explain patient's high fever, however since he has been on antibiotics and still has bacteria present I will change his antibiotics to cefpodoxime BID. Patient informed of all lab and imaging findings. No obvious source for fever at this time. Cultures are pending. He was counseled to continue to closely follow up with his Urology team. Discharge Plan Departure Patient Disposition: Home Clinical Impression: Fever, Bacteriuria Instructions: DI for Urinary Tract Infection (UTI) Activity Restrictions/Additional Instructions: Your laboratory work today does not indicate a bloodstream infection. Your kidney function is normal, and your respiratory panel did not test positive for common viruses or respiratory bacteria. I did notice that you have a mild elevation in your liver enzymes, however this has been seen as far back as 2020. Follow up with your primary care doctor regarding this finding. You did have some white blood cells and bacteria in your urine. I do not know if this is wholly responsible for your fever, however since you have already been on Bactrim I recommend changing your antibiotics and starting Flomax. Continue Flomax unless otherwise told by cardiology. If you continue to have fevers beyond 48 hours please return to the ED for repeat evaluation or see your primary care doctor. Prescriptions: New cefpodoxime 200 mg tablet 200 mg PO Q12H Qty: 20 0RF Rx Instructions: must administer with a meal/food tamsulosin 0.4 mg capsule 0.4 mg PO DAILY Qty: 30 0RF No Action atorvastatin 10 mg tablet 10 mg PO DAILY multivitamin Tablet 1 tab PO DAILY rosuvastatin 10 mg tablet 10 mg PO DAILY Referrals: Arlet Foley MD [Primary Care Provider] - Stand Alone Forms: Patient Portal/API
[2024-01-11 22:18] LABS: Bacteria Urine Few (2-10); Culture Indicated Urine Specimen Cultured; Mucus Urine 1+ (Negative); RBC Urine 0-1/HPF (0-5/HPF); Squamous Epithelial Cell Urine 0-1 /HPF (0-5/HPF); Urine Volume 10mL (spun); WBC Urine 5-10/HPF (0-5/HPF)
[2024-01-11 22:20] LABS: Add Manual Diff / Slide Review NO; Basophils Absolute Auto 0 /uL (0-100); Basophils Percent Auto 0.8 % (0-2); Eosinophils Absolute Auto 0 /uL (0-450); Eosinophils Percent Auto 0.7 % (2-4); Hemoglobin 13.2 g/dL (13.5-17.5); Lymphocytes Absolute Auto 1000 /uL (1100-4500); Lymphocytes Percent Auto 18.1 % (25-40); Mean Corpuscular HGB Conc 34.6 % (30-36); Mean Corpuscular Volume 89.8 fL (80-100); Monocytes Absolute Auto 600 /uL (0-900); Monocytes Percent Auto 10.6 % (3-14); Neutrophils Absolute Auto 3700 /uL (1500-7000); Neutrophils Percent Auto 69.8 % (50-75); Platelet Count 245 X10^3/uL (150-400); Red Blood Cell Count 4.24 X10^6/uL (4.5-5.9); Red Cell Distribution Width 14.9 % (11.6-14.8); White Blood Cell Count 5.4 X10^3/uL (4.5-11.0)
[2024-01-11] MEDS: SODIUM CHLORIDE 0.9% 1,000 ML 1000 ML IV (22:20)
[2024-01-11] MEDS: cefTRIAXone 2,000 MG in SODIUM CHLORIDE 0.9% 100 ML 200 MG IV (22:31)
[2024-01-11 22:39] VITALS: PULSE 78; O2SAT 96
[2024-01-11 22:43] LABS: Alanine Aminotransferase 74 IU/L (<50); Albumin 3.4 g/dL (3.5-5.0); Albumin Globulin Ratio 1.1 (1.0-2.8); Alkaline Phosphatase 130 U/L (38-126); Aspartate Aminotransferase 79 IU/L (17-59); BUN Creatinine Ratio 16.3 (6-22); Bilirubin Total 0.5 mg/dL (0.2-1.3); Blood Urea Nitrogen 17 mg/dL (9-20); Calcium 8.7 mg/dL (8.4-10.2); Carbon Dioxide 22 mmol/L (22-32); Chloride 102 mmol/L (98-107); Estimated Glomerular Filt Rate > 60 mL/min (>60); Globulin 3.1 g/dL (1.7-4.1); Glucose 127 mg/dL (80-110); HEMOLYSIS 18 (0-50); Potassium 3.8 mmol/L (3.4-5.1); Sodium 131 mmol/L (137-145); Total Protein 6.5 g/dL (6.3-8.2)
[2024-01-11 22:44] LABS: Lactate (Lactic Acid) 0.8 mmol/L (0.7-2.1)
[2024-01-11 23:00] VITALS: BP 137/72; PULSE 77; RESP 18; O2SAT 96
[2024-01-11 23:00] LABS: Procalcitonin 0.291 ng/mL (<0.5)
[2024-01-11 23:30] VITALS: BP 133/76; PULSE 73; RESP 17; O2SAT 95
[2024-01-11 23:45] LABS: Adenovirus Not Detected (Not Detect); B. parapertussis Not Detected (Not Detecte); Bordetella pertussis Not Detected (Not Detect); Chlamydophila pneumoniae Not Detected (Not Detect); Coronavirus 229E Not Detected (Not Detect); Coronavirus HKU1 Not Detected (Not Detect); Coronavirus NL 63 Not Detected (Not Detect); Coronavirus OC43 Not Detected (Not Detect); Human Metapneumovirus Not Detected (Not Detect); Human Rhinovirus/Enterovirus Not Detected (Not Detect); Influenza A Not Detected (Not Detect); Influenza B Not Detected (Not Detect); Mycoplasma pneumoniae Not Detected (Not Detect); Parainfluenza Virus 1 Not Detected (Not Detect); Parainfluenza Virus 2 Not Detected (Not Detect); Parainfluenza Virus 3 Not Detected (Not Detect); Parainfluenza Virus 4 Not Detected (Not Detect); Respiratory Syncytial Virus Not Detected (Not Detect); SARS- CoV-2 Not Detected (Not Detecte)
[2024-01-12] VITALS: BP 132/77; PULSE 74; RESP 18; O2SAT 95
[2024-01-12 00:30] VITALS: BP 131/76; PULSE 69; RESP 18; O2SAT 95
--- NOTE | 2024-01-12 00:32 | DI.RAD.S_ITS ---
PROCEDURE: XR CHEST 1V INDICATIONS: fevers, night sweats x 3 days TECHNIQUE: One view of the chest was acquired. COMPARISON: [facility], CR, XR CHEST 2V, 08/18/2021, 12:26. FINDINGS: Surgical changes and devices: None. Lungs and pleura: Chronic elevation of right hemidiaphragm is again seen. Mild pulmonary vascular congestion is. No definite focal infiltrate. No significant pleural effusion or pneumothorax. Mediastinum: Mediastinal contours appear normal. Heart size is enlarged. Bones and chest wall: No suspicious bony lesions. Overlying soft tissues appear unremarkable. IMPRESSION: Cardiomegaly and mild congestion. Chronic elevation of right hemidiaphragm. No definite focal infiltrate, pleural effusion or pneumothorax. Dictated by: Armond Unger M.D. on 01/12/2024 at 0:49 Approved by: Armond Unger M.D. on 01/12/2024 at 0:50
== END 2024-01-12 00:50 | disposition home or self-care (01) ==
PROVIDERS: Emergency Provider Emergency Medicine; PCP Family Medicine
DX: N39.0 Urinary tract infection, site not specified (principal); R82.71 Bacteriuria; R50.9 Fever, unspecified; I51.7 Cardiomegaly; Z11.52 Encounter for screening for COVID-19
CPT/HCPCS: 36415; 51798; 71045; 80053; 81001; 83605; 84145; 85025; 87040; 87077; 87086; 87186; 87633; 96365; 99284; J0696

== ENCOUNTER 2024-03-16 13:40 | Day surgery (SDC) | payer MEDICARE, OTHER, SELFPAY ==
[2024-03-16 14:08] VITALS: BP 140/79; PULSE 83; RESP 17; TEMP 36.2; O2SAT 95
--- NOTE | 2024-03-16 14:10 | PM.HP.1 ---
History of Present Illness History of Present Illness Date Patient Seen: 03/16/24 Time Patient Seen: 14:10 Chief complaint: Colonoscopy Narrative: Osile is a 73 year old man who is here for a colonoscopy. His last was in [address] Anderson. No polyps were found at that time but according to her pre-op note he had had polyps on his last colonoscopy before that one. His sister was diagnosed with colon cancer when she was about 70. [facility] Medical History Herniated nucleus pulposus, L5-S1, right Lumbosacral radiculopathy at L5 Degenerative joint disease of right hip Avulsion fracture of ankle Degenerative joint disease, ankle, left Surgical History History of total right hip arthroplasty History of total left hip arthroplasty History of parathyroid surgery History of cholecystectomy Family History Mother Hyperlipidemia Diabetes mellitus Heart disease Cancer Father Diabetes mellitus Hyperlipidemia Social History household members: spouse Smoking Status: Former smoker alcohol intake: never Meds Home Medications and Allergies Home Medications Medication Instructions Recorded Confirmed Type multivitamin 1 tab PO DAILY 05/26/18 03/16/24 History rosuvastatin 10 mg tablet 10 mg PO DAILY 06/04/22 03/16/24 History sodium,potassium,mag sulfates 17.5 See Rx Instructions PO .COMPLEX 02/08/24 Rx gram-3.13 gram-1.6 gram oral soln #354 mL (Suprep Bowel Prep Kit) celecoxib 200 mg capsule (Celebrex) 200 mg PO DAILY 03/16/24 03/16/24 History Allergies Allergy/AdvReac Type Severity Reaction Status Date / Time No Known Drug Allergies Allergy Verified 03/16/24 13:58 Exam Vital Signs (past 8 hours): - 03/16/24 14:08 Temperature 97.1 F L Pulse Rate 83 Respiratory Rate 17 Blood Pressure 140/79 Pulse Oximetry 95 Oxygen Delivery Method Room Air Oxygen Delivery Method Room Air Const General: healthy appearing Assessment & Plan Assessment and plan (1) History of colon polyps: Status: Acute Plan Colonoscopy Time-Based Coding :: [TOTAL MINUTES] spent with patient and on the chart (including review of chart, obtaining history, exam, reviewing outside data, placing orders, documenting exam and treatment plan, and counseling patient) on [DATE].
--- NOTE | 2024-03-16 15:13 | PM.OP.COLON ---
Operative Date/Time/Diagnoses Date of procedure: 03/16/24 Time of procedure: 15:14 Pre-op diagnosis: Colon cancer screening Post-op diagnosis: same Procedure & Clinicians Study performed: Colonoscopy Same procedure as scheduled: Yes Surgeon: Jori Kumar Procedure Notes Procedure in detail: Surgeon: Jori Kumar MD Anesthesia: Treri Youssef CRNA Procedure: The patient was brought to the endoscopy suite, placed in left lateral decubitus position. The patient was connected to monitoring devices. A time-out was performed. Sedation was administered. Once the patient was adequately sedated, a digital rectal exam was performed and was normal. The scope was then inserted and advanced to the cecum where the appendiceal orifice was identified and photographed. The scope was then slowly withdrawn over greater than 6 minutes. The mucosa was thoroughly inspected. No abnormalities were found. The scope was retroflexed in the rectum. No abnormalities were seen. The scope was straightened and removed. The patient was awakened and brought to recovery. Scope withdrawal time: 6 minutes Sedation time: 11 minutes EBL: 0 Findings: Normal colon Post-procedure Disposition: PACU
[2024-03-16 15:18] VITALS: BP 99/71; PULSE 87; RESP 16; TEMP 36.2; O2SAT 95
[2024-03-16 15:23] VITALS: BP 108/61; PULSE 78; RESP 16; O2SAT 95
[2024-03-16 15:28] VITALS: BP 109/66; PULSE 84; RESP 16; O2SAT 98
== END 2024-03-16 15:44 | disposition home or self-care (01) ==
PROVIDERS: PCP Family Medicine; Referring Provider Surgery; Visit Provider Surgery
PROC: 0DJD8ZZ Inspection of Lower Intestinal Tract, Via Natural or Artificial Opening Endoscopic (ICD-10-PCS; CPT 45378; principal; 2024-03-16 15:00)
DX: Z12.11 Encounter for screening for malignant neoplasm of colon (principal); Z86.0100 Personal history of colon polyps, unspecified; Z80.0 Family history of malignant neoplasm of digestive organs
CPT/HCPCS: G0105; J2704

== ENCOUNTER → 2025-03-29 11:21 | Outpatient (CLI) | payer MEDICARE, OTHER, SELFPAY ==
--- NOTE | 2025-03-29 11:25 | DI.RAD.S_ITS ---
PROCEDURE: XR KNEE STANDING BI INDICATIONS: KNEE PAIN TECHNIQUE: 1 views of the knee(s) COMPARISON: None. FINDINGS: Bones: No acute fractures or dislocations on single AP view. Patellar alignment is normal on the sunrise view. No suspicious bony lesions. Right grade 2 and left grade 1 medial compartment predominant degenerative arthrosis. Soft tissues: No knee joint effusions. No suspicious soft tissue calcification. IMPRESSION: No acute osseous abnormality. Right grade 2 and left grade 1 medial compartment mint predominant degenerative arthrosis. Dictated by: Ovidio Valiente M.D. on 03/29/2025 at 17:18 Approved by: Ovidio Valiente M.D. on 03/29/2025 at 17:18
--- NOTE | 2025-03-29 11:25 | DI.RAD.S_ITS ---
PROCEDURE: XR KNEE RT 1TO2V INDICATIONS: KNEE PAIN TECHNIQUE: 2 views of the knee were acquired. COMPARISON: None. FINDINGS: Moderate patellofemoral compartment degenerative arthrosis. Bones: No fractures or dislocations. No suspicious bony lesions. Soft tissues: Moderate joint effusion. No suspicious soft tissue calcifications. IMPRESSION: Moderate knee joint effusion without acute osseous abnormality. Moderate patellofemoral compartment degenerative arthrosis. Dictated by: Ovidio Valiente M.D. on 03/29/2025 at 17:17 Approved by: Ovidio Valiente M.D. on 03/29/2025 at 17:18
== END ==
PROVIDERS: PCP Family Medicine; Referring Provider Family Medicine; Visit Provider Family Medicine
DX: M17.11 Unilateral primary osteoarthritis, right knee (principal); M25.561 Pain in right knee; M25.461 Effusion, right knee
CPT/HCPCS: 73560; 73565

== ENCOUNTER → 2025-04-02 15:26 | Outpatient (CLI) | payer MEDICARE, OTHER, SELFPAY ==
--- NOTE | 2025-04-02 15:33 | DI.MRI.S_ITS ---
PROCEDURE: MR KNEE RT WO CON INDICATIONS: PAIN TECHNIQUE: Noncontrast sagittal PD fast spin echo and T2 fast spin echo with fat saturation, sagittal 3-D FLASH with fat saturation; coronal T1 spin echo and PD fast spin echo with fat saturation, and axial PD fast spin echo with fat saturation through the knee. COMPARISON: None. FINDINGS: Image quality: Diagnostic. Menisci: Medial meniscus posterior horn root junction complete radial tear which results in mild to moderate extrusion of the meniscus. The root is severely degenerated. The lateral meniscus is intact. Ligaments: The ACL is intact. The PCL is intact. Grade 1 sprain of the MCL. No high-grade4 tear. The LCL is intact. The posterolateral supporting structures are intact. Extensor Mechanism: Quadriceps tendon is intact. Laxity and redundancy of the patella may be secondary to positioning and corresponding hyper extension during imaging. No focal tear. The patellar retinacula are intact. Osseous Structures: There is no fracture or dislocation. A 1.8 cm nonaggressive chondroid lesion in the posterior intramedullary canal of the distal femoral metadiaphysis without adjacent bone marrow edema, cortical breakthrough, or extraosseous extension. This is consistent with a benign enchondroma. Large knee joint effusion. Hoffa's fat pad is unremarkable. Articular Cartilage: Patellofemoral compartment: Full-thickness articular cartilage loss of the medial patellar facet with small subchondral pitting.. Focal deep fissuring the superior central femoral trochlea with deep to full-thickness articular cartilage loss of the inferior central femoral trochlea. Medial compartment: Deep, grade 3 articular cartilage thinning and fraying of the central weight-bearing condyle and tibial plateau with grade 3-4 articular cartilage thinning of the peripheral posterior femoral condyle Lateral compartment: Cartilage of the lateral tibiofemoral compartment is intact. Other: The visualized muscles and tendons appear normal for age. No Magaña's cyst. Normal neurovascular signal. Subcutaneous fat edema along the anterior knee with prepatellar bursitis. Edema extends along the knee joint capsule adjacent to the posterior aspect and fascial margin of the distal quadriceps. IMPRESSION: 1. Medial meniscus posterior horn root junction complete radial tear which results in severe degeneration of the posterior root and mild to moderate extrusion of the medial meniscus. 2. 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 3. Grade 1 sprain of the MCL. 4. Nonaggressive likely enchondroma in the distal femoral metadiaphysis. Dictated by: Ovidio Valiente M.D. on 04/02/2025 at 17:35 Approved by: Ovidio Valiente M.D. on 04/02/2025 at 17:42
== END ==
LOC: MRI 15:27
PROVIDERS: PCP Family Medicine; Referring Provider Family Medicine; Visit Provider Family Medicine
DX: S83.241A Other tear of medial meniscus, current injury, right knee, initial encounter (principal); S83.411A Sprain of medial collateral ligament of right knee, initial encounter; M22.41 Chondromalacia patellae, right knee; M25.561 Pain in right knee
CPT/HCPCS: 73721